=== PATIENT | male | born 1950 | race Caucasian/White ===

== ENCOUNTER → 2018-05-01 09:09 | Outpatient (CLI) | payer MEDICARE, OTHER, SELFPAY ==
[2018-05-01 17:25] LABS: Absolute Lymphocyte Count 1.56 X10^3/ul (0.83-4.51); Absolute Neutrophil Count 3.2 X10^3/uL (2.0-7.7); Basophil# 0.01 X10^3/uL; Basophil% 0.2 % (0-1); Eosinophil# 0.21 X10^3/uL; Eosinophils% 3.8 % (0-5); Hemoglobin 15.2 g/dl (13.0-16.5); Lymphocyte # 1.56 X10^3/ul (4.0); Lymphocyte % 28.1 % (19-41); Mean Corpuscular Hgb 28.6 pg (27.0-32.0); Mean Corpuscular Volume 86.6 fL (80-94); Mean Platelet Vol. 9.6 fl (6.2-12.0); Monocyte# 0.58 X10^3/uL; Monocyte% 10.5 % (0-10); Neutrophil # 3.18 X10^3/uL (2.7-7.7); Neutrophil % 57.2 % (47-70); Platelet Count 206 K/mm3 (150-450); RBC Distribution Width CV 14.4 % (11.6-14.6); RBC Distribution Width SD 46.1 fl (35.1-43.9); Red Blood Count 5.31 M/mm3 (4.6-6.2); White Blood Count 5.6 K/mm3 (4.4-11.0)
[2018-05-01 17:49] LABS: POSITIVE COUNT NO; POSITIVE DIFFERENTIAL NO; POSITIVE MORPHOLOGY NO
[2018-05-01 17:56] LABS: AST(SGOT) 20 U/L (15-37); Alanine Aminotransfer ALT/SGPT 28 U/L (16-61); Albumin, Serum 3.7 g/dL (3.2-5.0); Alkaline Phosphatase 119 U/L (45-117); Anion Gap 8 (5-15); BUN 19 mg/dL (7-18); BUN/Creat Ratio 22.8 RATIO (10-20); Calcium,Total 8.7 mg/dL (8.5-10.1); Chloride 106 mmol/L (98-107); Creatinine, Serum 0.83 mg/dL (0.70-1.30); EST Glomerular Filtration Rate 97 mL/min (>60); Est Glom Filt Rate - Afr Amer 118 mL/min (>60); Globulin 3.6 g/dL (2.2-4.2); Glucose 85 mg/dL (74-106); PSA,Total - Annual Screen 2.96 ng/mL (0.00-4.00); Potassium 4.2 mmol/L (3.5-5.1); Protein, Total 7.3 g/dL (6.4-8.2); Sodium Level 143 mmol/L (136-145); Thyroid Stim Hormone (TSH) 1.06 uIU/mL (0.358-3.74)
[2018-05-02 08:58] LABS: Vitamin D,25 Hydroxy 17.7 ng/mL (29.95-100.01)
[2018-05-04 10:17] LABS: Hep C Antibodies <0.1 s/co ratio (0.0-0.9)
== END ==
PROVIDERS: Family Provider Family Medicine Geriatric Medicine; PCP Family Medicine Geriatric Medicine; Visit Provider Family Medicine Geriatric Medicine
DX: R53.83 Other fatigue (principal); E55.9 Vitamin D deficiency, unspecified; Z13.89 Encounter for screening for other disorder; Z12.5 Encounter for screening for malignant neoplasm of prostate
CPT/HCPCS: 36415; 80053; 82306; 84153; 84403; 84443; 85025; 86803; G0103

== ENCOUNTER → 2018-10-23 13:33 | Outpatient (CLI) | payer MEDICARE, OTHER, SELFPAY | PROVIDERS: Family Provider Family Medicine Geriatric Medicine; PCP Family Medicine Geriatric Medicine; Referring Provider Family Medicine Geriatric Medicine; Visit Provider Family Medicine Geriatric Medicine | DX: R68.83 Chills (without fever) (principal) | CPT/HCPCS: 87633 ==

== ENCOUNTER → 2019-05-07 11:36 | Outpatient (CLI) | payer MEDICARE, OTHER, SELFPAY ==
[2019-05-07 12:32] LABS: Absolute Lymphocyte Count 1.36 X10^3/uL (0.83-4.51); Absolute Neutrophil Count 3.9 X10^3/uL (2.0-7.7); Basophil# 0.01 X10^3/uL; Basophil% 0.2 % (0-1); Eosinophil# 0.35 X10^3/uL; Eosinophils% 5.6 % (0-5); Hematocrit 47.8 % (40-54); Hemoglobin 15.6 g/dL (13.0-16.5); Lymphocyte # 1.36 X10^3/ul (4.0); Lymphocyte % 21.7 % (19-41); Mean Corp Hgb Conc 32.6 g/dL (32-36); Mean Corpuscular Hgb 28.6 pg (27.0-32.0); Mean Corpuscular Volume 87.7 fL (80-94); Mean Platelet Vol. 9.6 fl (6.2-12.0); Monocyte# 0.64 X10^3/uL; Monocyte% 10.2 % (0-10); NRBC Flagged by Analyzer 0 % (0-5); Neutrophil # 3.88 X10^3/uL (2.7-7.7); Neutrophil % 61.8 % (47-70); Platelet Count 204 K/mm3 (150-450); RBC Distribution Width CV 13.8 % (11.6-14.6); RBC Distribution Width SD 44.3 fl (35.1-43.9); Red Blood Count 5.45 M/mm3 (4.6-6.2); White Blood Count 6.3 K/mm3 (4.4-11.0)
[2019-05-07 12:51] LABS: ALB/GLOB Ratio 1.1 RATIO (0.9-2.4); AST(SGOT) 17 U/L (15-37); Alanine Aminotransfer ALT/SGPT 22 U/L (16-61); Albumin, Serum 3.7 g/dL (3.2-5.0); Alkaline Phosphatase 126 U/L (45-117); Anion Gap 5 (5-15); BUN 17 mg/dL (7-18); BUN/Creat Ratio 19.1 RATIO (10-20); Calcium,Total 8.8 mg/dL (8.5-10.1); Chloride 106 mmol/L (98-107); Creatinine, Serum 0.89 mg/dL (0.70-1.30); EST Glomerular Filtration Rate 90 mL/min (>60); Est Glom Filt Rate - Afr Amer 108 mL/min (>60); Globulin 3.3 g/dL (2.2-4.2); Glucose 90 mg/dL (74-106); Potassium 4.1 mmol/L (3.5-5.1); Sodium Level 142 mmol/L (136-145); Thyroid Stim Hormone (TSH) 0.98 uIU/mL (0.358-3.74)
[2019-05-07 12:54] LABS: Vitamin D,25 Hydroxy 24.3 ng/mL (29.95-100.01)
== END ==
PROVIDERS: Family Provider Family Medicine Geriatric Medicine; PCP Family Medicine Geriatric Medicine; Visit Provider Family Medicine Geriatric Medicine
DX: E55.9 Vitamin D deficiency, unspecified (principal); R53.83 Other fatigue; Z12.5 Encounter for screening for malignant neoplasm of prostate
CPT/HCPCS: 36415; 80053; 82306; 84153; 84443; 85025; G0103

== ENCOUNTER → 2019-08-17 | Outpatient (CLI) | payer MEDICARE, OTHER, SELFPAY ==
[2019-07-08 09:45] VITALS: BMI 27.6
--- NOTE | 2019-08-17 06:55 | ECHOD_ITS ---
Reason For Study: CP Procedure This was a 2D Doppler, Color Flow transthoracic echocardiogram. Contrast injection was performed. Exam performed in department. Left Ventricle Normal LV size. Left ventricular systolic function is normal. The estimated ejection fraction is 65 %. Stage 1 diastolic dysfunction. No regional wall motion abnormalities noted. Right Ventricle Normal RV size. Normal systolic function. Atria Normal left atrium. Normal right atrium. Mitral Valve Normal mitral valve. Tricuspid Valve Normal tricuspid valve. Aortic Valve Normal aortic valve. Pulmonic Valve Normal pulmonic valve. Great Vessels Normal aortic root. The pulmonary artery is normal size. Normal inferior vena cava. Pericardium/Pleural No pericardial effusion. Medication Performed a rapid injection of agitated mix of 9 cc saline and 1cc air to assess for atrial septal defect. MMode/2D Measurements & Calculations LVIDd: 3.8 cm IVSd: 1.1 cm LA dimension: 3.4 cm LVIDs: 2.2 cm LVPWd: 1.2 cm RVDd: 3.5 cm FS: 42.4 % LAV(MOD-bp): 27.3 ml LA A4 area: 10.4 cm2 RA A4 area: 10.4 cm2 LAV(MOD-bp) Indexed: 15.0 ml/m2 LAV(MOD-sp2): 34.3 ml LAV(MOD-sp4): 20.5 ml Time Measurements MV dec time: 0.17 sec Doppler Measurements & Calculations MV E max manuel: 61.9 cm/sec Lat Peak E' Manuel: 6.6 cm/sec Med Peak E' Manuel: 6.3 cm/sec MV A max manuel: 81.9 cm/sec E/E' lat: 9.4 E/E' med: 9.8 MV E/A: 0.76 MV V2 max: 84.8 cm/sec MV P1/2t max manuel: 66.6 cm/sec Ao V2 max: 80.3 cm/sec MV max P.9 mmHg MV P1/2t: 75.7 msec Ao max P.6 mmHg MV V2 mean: 48.2 cm/sec MV dec slope: 257.8 cm/sec2 MV mean P.1 mmHg MV V2 VTI: 15.7 cm MVA(P1/2t): 2.9 cm2 AI max manuel: 396.4 cm/sec LV V1 max: 68.3 cm/sec PA V2 max: 89.6 cm/sec AI max P.9 mmHg LV V1 max P.9 mmHg AI dec slope: 302.5 cm/sec2 AI P1/2t: 383.8 msec TR max manuel: 268.2 cm/sec TR max P.8 mmHg Interpretation Summary Normal LV size. Left ventricular systolic function is normal. The estimated ejection fraction is 65 %. Stage 1 diastolic dysfunction. Structurally normal valves. Ordering Physician: Balwinder Parry Referring Physician: Tj So Chi Performed By: Delano Schuster RCS
--- NOTE | 2019-08-17 14:14 | STRESSREP ---
Stress Test Report Exercise myocardial perfusion stress test. 69-year-old man with a history of shortness of breath and cardiac risk factors. Stress protocol: Resting EKG demonstrates normal sinus rhythm with a rate of 83 bpm normal intervals are noted resting blood pressures 118/76. The patient exercised according to regular Kaleb protocol for 7 minutes the maximum heart rate attained was 173 bpm which was 115% of maximum predicted heart rate the maximum workload was 8.5 metabolic equivalents. At rest there were no ST or T wave changes no suggest ischemia peak exercise upsloping ST changes were noted with no meet the criteria for ischemia occasional premature ventricular complex was noted. The resting blood pressures 118/76 with a peak blood pressure 162/80 mmHg rate pressure product was 25,500. Myocardial perfusion protocol. 10.8 mCi of technetium 99m sestamibi was injected at rest. The patient exercised according to regular Kaleb protocol for total duration of 7 minutes at peak exercise 35.0 mCi of technetium 99m sestamibi was injected stress images were obtained stress and rest images were reconstructed and compared in the short axis vertical and horizontal long axis. Gated images were also obtained Perfusion SPECT analysis: Review of the stress images demonstrate normal uptake of tracer noted in all areas of myocardium the resting images similar demonstrate normal uptake of tracer noted in all areas of myocardium no areas of reversibility or no suggest ischemia no previous infarct is noted. Gated SPECT analysis: The gated ejection fraction is noted to be 75% Conclusion: Normal exercise myocardial perfusion stress test at a moderate workload. Preserved ejection fraction.
== END | disposition home or self-care (01) ==
LOC: CVS 06:54
PROVIDERS: Family Provider Family Medicine Geriatric Medicine; PCP Family Medicine Geriatric Medicine; Referring Provider Internal Medicine Cardiovascular Disease; Visit Provider Internal Medicine Cardiovascular Disease
DX: E78.00 Pure hypercholesterolemia, unspecified (principal); R06.09 Other forms of dyspnea; R07.9 Chest pain, unspecified; Z82.49 Family history of ischemic heart disease and other diseases of the circulatory system
CPT/HCPCS: 78452; 93017; 93306; A9500; A4216

== ENCOUNTER → 2020-06-22 11:12 | Outpatient (CLI) | payer MEDICARE, OTHER, SELFPAY ==
[2019-07-08 09:45] VITALS: BMI 27.6
--- NOTE | 2020-06-22 11:20 | RAD_ITS ---
STUDY: X-RAY - ABDOMEN/PELVIS REASON FOR EXAM: Male, 70 years old. FECAL IMPACTION TECHNIQUE: 4 views COMPARISON: None. FINDINGS: Normal visualized lung bases. There is an unremarkable bowel gas pattern. No significant fecal retention. There is no demonstrated free abdominal air. The visualized liver, spleen and kidneys are grossly normal in size and morphology. Normal soft tissue structures. Degenerative vertebral changes and mild scoliosis. RAD/Abd Inc Decub and/or Erect IMPRESSION: Normal x-ray examination of the abdomen and pelvis. Electronically Signed: Braden Murrieta DO at 17:31 EDT Tel [phone], Service support ,
[2020-06-22 16:08] LABS: Absolute Lymphocyte Count 1.97 X10^3/uL (0.83-4.51); Absolute Neutrophil Count 3.3 X10^3/uL (2.0-7.7); Basophil# 0.03 X10^3/uL; Basophil% 0.5 % (0-1); Eosinophil# 0.47 X10^3/uL; Eosinophils% 7.2 % (0-5); Hematocrit 47.7 % (40-54); Hemoglobin 15.1 g/dL (13.0-16.5); Lymphocyte # 1.97 X10^3/ul (4.0); Lymphocyte % 30.1 % (19-41); Mean Corp Hgb Conc 31.7 g/dL (32-36); Mean Corpuscular Hgb 27.7 pg (27.0-32.0); Mean Corpuscular Volume 87.5 fL (80-94); Mean Platelet Vol. 9.4 fl (6.2-12.0); Monocyte# 0.79 X10^3/uL; Monocyte% 12.1 % (0-10); NRBC Flagged by Analyzer 0 % (0-5); Neutrophil # 3.26 X10^3/uL (2.7-7.7); Neutrophil % 49.8 % (47-70); Platelet Count 229 K/mm3 (150-450); RBC Distribution Width CV 14.1 % (11.6-14.6); Red Blood Count 5.45 M/mm3 (4.6-6.2); White Blood Count 6.5 K/mm3 (4.4-11.0)
[2020-06-22 16:38] LABS: AST(SGOT) 21 U/L (15-37); Alanine Aminotransfer ALT/SGPT 25 U/L (16-61); Albumin, Serum 3.7 g/dL (3.2-5.0); Alkaline Phosphatase 123 U/L (45-117); Anion Gap 3 (5-15); BUN 17 mg/dL (7-18); Calcium,Total 8.6 mg/dL (8.5-10.1); Chloride 104 mmol/L (98-107); Creatinine, Serum 0.94 mg/dL (0.70-1.30); EST Glomerular Filtration Rate 84 mL/min (>60); Est Glom Filt Rate - Afr Amer 101 mL/min (>60); Globulin 3.7 g/dL (2.2-4.2); Glucose 86 mg/dL (74-106); Potassium 4.7 mmol/L (3.5-5.1); Protein, Total 7.4 g/dL (6.4-8.2); Sodium Level 138 mmol/L (136-145); Thyroid Stim Hormone (TSH) 0.97 uIU/mL (0.358-3.74)
[2020-06-22 16:54] LABS: Vitamin D,25 Hydroxy 34.3 ng/mL
== END ==
PROVIDERS: PCP Family Medicine Geriatric Medicine; Referring Provider Family Medicine Geriatric Medicine; Visit Provider Family Medicine Geriatric Medicine
DX: K56.41 Fecal impaction (principal); E55.9 Vitamin D deficiency, unspecified; F52.8 Other sexual dysfunction not due to a substance or known physiological condition; R53.83 Other fatigue
CPT/HCPCS: 36415; 74019; 80053; 82306; 84403; 84443; 85025

== ENCOUNTER → 2020-09-30 10:52 | Outpatient (CLI) | payer MEDICARE, OTHER, SELFPAY ==
[2019-07-08 09:45] VITALS: BMI 27.6
--- NOTE | 2020-09-30 11:00 | RAD_ITS ---
STUDY: X-RAY - LUMBAR SPINE REASON FOR EXAM: Male, 70 years old. LOW BACK PAIN WITH RADICULOPATHY TO LEFT LEG S/P TWISTING INJURY x2 DAYS AGO TECHNIQUE: 2 view(s) of the lumbar spine were obtained. COMPARISON: None FINDINGS: Normal lumbar lordosis. There is no substantial scoliosis. There is a normal alignment of the vertebrae. There is multilevel endplate spondylosis of the lumbar vertebrae. Normal disc space heights. The soft tissue structures are unremarkable. RAD/Lumbar Spine 2 or 3 Views IMPRESSION: Mild diffuse degenerative disc disease. MRI may be useful. Electronically Signed: Tray Baires MD at 8:57 EST Tel , Service support ,
== END ==
PROVIDERS: PCP Family Medicine Geriatric Medicine; Referring Provider Family Medicine Geriatric Medicine; Visit Provider Family Medicine Geriatric Medicine
DX: M54.5 Low back pain (principal)
CPT/HCPCS: 72100

== ENCOUNTER → 2020-11-17 16:21 | Outpatient (CLI) | payer MEDICARE, OTHER, SELFPAY ==
[2020-11-15 08:52] VITALS: BMI 27.9
--- NOTE | 2020-11-17 16:26 | US_ITS ---
STUDY: SUPERFICIAL ULTRASOUND - BILATERAL AXILLA REASON FOR EXAM: Male, 70 years old. BILATERAL AXILLA SWELLING -- LYMPHADENOPATHY TECHNIQUE: A superficial ultrasound was performed with real-time and static lópez-scale imaging. COMPARISON: None. FINDINGS: In the left axilla there is a 1.1 x 0.5 x 0.5 cm ovoid solid density heterogeneous increased DOPPLER flow and disturbance of the surrounding tissues. Contains DOPPLER flow and likely to be an inflamed lymph node. In the right axilla there is a 1.9 x 1.7 x 0.8 cm ovoid heterogeneous density with surrounding tissue disturbance and DOPPLER flow consistent with inflamed lymph node. US/Ext Non Vasc Limited/Soft Tiss IMPRESSION: Bilateral inflammatory lymph nodes as described above. Electronically Signed: Kim Carreon MD at 17:17 EST , Service support , All findings coated in the bilateral upper extremity ultrasound of the same day. Electronically Signed: Kim Carreon MD at 17:18 EST , Service support ,
== END ==
PROVIDERS: PCP Family Medicine Geriatric Medicine; Referring Provider Family Medicine Geriatric Medicine; Visit Provider Family Medicine Geriatric Medicine
DX: R59.9 Enlarged lymph nodes, unspecified (principal)
CPT/HCPCS: 76882

== ENCOUNTER → 2020-12-09 12:45 | Outpatient (CLI) | payer MEDICARE, OTHER, SELFPAY ==
[2020-11-29 12:59] VITALS: BMI 26.9
--- NOTE | 2020-12-09 12:47 | CT_ITS ---
STUDY: CT ABDOMEN AND PELVIS WITH CONTRAST REASON FOR EXAM: Male, 70 years old. BILAT AXILLARY LYMPHADENOPATHY, STRONG FAMILY HISTORY OF NHL (MOM,DAD,BROTHER) RADIATION DOSAGE (If Supplied By Facility): CTDIvol = ( 15.89 ) mGy, DLP = ( 843.48 ) mGycm TECHNIQUE: Transaxial images were obtained from the dome of the diaphragm to the symphysis pubis without oral contrast. IV 100mL Isovue-300 was administered. Sagittal and coronal images were reconstructed. Individualized dose optimization techniques were used for this CT. COMPARISON: None. FINDINGS: Mild increased markings at the lung bases suggestive of either mild linear scarring versus atelectasis. The visualized portions of the heart are within normal limits. Normal liver. Normal gallbladder and extrahepatic biliary system. Normal spleen. Normal pancreas. Normal bilateral adrenal glands. There is a 5.9 cm x 3.3 cm cyst arising from the upper medial aspect of the left kidney. Normal left kidney. Normal visualized stomach. Normal small intestine. There are scattered colonic diverticula consistent with diverticulosis. The appendix is visualized and appears normal. There is scattered atherosclerotic calcification of the abdominal aorta, without a demonstrated aneurysm. Normal inferior vena cava. Normal retroperitoneum. Normal urinary bladder. Small bilateral inguinal hernias containing fat. There are mild degenerative changes of the visualized lumbar spine. CT/Abdomen/Pelvis WITH Contrast IMPRESSION: Right renal cyst. Scattered sigmoid diverticula. Mild linear scarring and/or atelectasis at the lung bases. Electronically Signed: Kunal Lopez MD at 13:48 EST , Service support ,
--- NOTE | 2020-12-09 12:47 | CT_ITS ---
STUDY: CT CHEST WITH CONTRAST REASON FOR EXAM: Male, 70 years old. BILAT AXILLARY LYMPHADENOPATHY, STRONG FAMILY H/O NHL (MOM,DAD,BROTHER) RADIATION DOSAGE (If Supplied By Facility): CTDIvol = ( 11.22 ) mGy, DLP = ( 344.74 ) mGycm TECHNIQUE: Transaxial imaging was performed following intravenous administration of IV 100mL Isovue-300. Multiplanar coronal and sagittal images were reformatted. Individualized dose optimization techniques were used for this CT. COMPARISON: None. FINDINGS: Small benign-appearing bilateral axillary lymph nodes. Mild increased linear markings at the lung bases as well as in the lingular segment of the left upper lobe suggestive of scarring. There is no demonstrated pleural abnormality. Normal heart and pericardium. Normal mediastinum. Normal hilar regions. Normal enhanced pulmonary arteries. Normal aorta arch and descending thoracic aorta. There are degenerative changes of the thoracic spine. There is no demonstrated abnormality of the visualized upper abdomen. CT/Chest WITH Contrast IMPRESSION: Normal enhanced CT Chest examination. Small benign-appearing bilateral axillary lymph nodes. Electronically Signed: Kunal Lopez MD at 13:57 EST , Service support ,
[2020-12-09 13:00] LABS: CREATININE FINGERSTICK 0.8 mg/dL (0.70-1.30); EGFR FINGERSTICK > 60.0000 mL/min (>60)
== END ==
PROVIDERS: PCP Family Medicine Geriatric Medicine; Referring Provider Surgery; Visit Provider Surgery
DX: R59.1 Generalized enlarged lymph nodes (principal); R59.0 Localized enlarged lymph nodes
CPT/HCPCS: 71260; 74177; Q9967

== ENCOUNTER → 2021-02-01 08:57 | Outpatient (CLI) | payer MEDICARE, OTHER, SELFPAY ==
[2020-12-13 15:11] VITALS: BMI 29.3
--- NOTE | 2021-02-01 09:00 | US_ITS ---
STUDY: SUPERFICIAL ULTRASOUND - RIGHT AXILLARY REGION. REASON FOR EXAM: Male, 70 years old. FOLLOW UP ENLARGED LYMPH NODES -- LEFT AXILLAE TECHNIQUE: A superficial ultrasound was performed with real-time and static lópez-scale imaging. COMPARISON: Comparison is made with prior examination dated 11/17/2020. In the right axilla, there is a 1.6 cm x 1.4 cm x 0.7 cm ovoid heterogeneous density with surrounding mild flow consistent with a lymph node. This is essentially unchanged. FINDINGS: Stable examination IMPRESSION: Stable examination. Electronically Signed: Kunal Lopez MD at 13:29 EDT , Service support , STUDY: SUPERFICIAL ULTRASOUND - LEFT AXILLA. REASON FOR EXAM: Male, 70 years old. FOLLOW UP ENLARGED LYMPH NODES -- LEFT AXILLAE TECHNIQUE: A superficial ultrasound was performed with real-time and static lópez-scale imaging. COMPARISON: Comparison is made with prior examination dated 11/17/2020. FINDINGS: 3 lymph nodes are seen in the left axillary region. The largest measures 2.7 cm x 1.2 cm x 1 cm. This has increased in size as compared to prior study. A second lymph node measuring 1.1 cm x 0.8 cm x 0.5 cm is seen as well. There is also evidence of a third lymph node measuring 1.3 cm x 1.4 cm x 0.9 cm. US/Ext Non Vasc Limited/Soft Tiss IMPRESSION: Enlargement of the left axillary lymph nodes as described. It presently measures 2.7 cm x 1.2 cm by 1 cm. Electronically Signed: Kunal Lopez MD at 13:31 EDT , Service support ,
== END ==
PROVIDERS: PCP Family Medicine Geriatric Medicine; Referring Provider Internal Medicine Hematology & Oncology; Visit Provider Internal Medicine Hematology & Oncology
DX: R59.0 Localized enlarged lymph nodes (principal)
CPT/HCPCS: 36415; 76882; 80053; 83615; 85025

== ENCOUNTER → 2021-05-01 12:16 | Outpatient (CLI) | payer MEDICARE, OTHER, SELFPAY ==
[2021-02-07 15:30] VITALS: BMI 29.2
--- NOTE | 2021-05-01 12:17 | US_ITS ---
STUDY: SUPERFICIAL ULTRASOUND - RIGHT AXILLA REASON FOR EXAM: Male, 70 years old. F/U ENLARGED LYMPH NODES -- BILATERAL AXILLAE TECHNIQUE: A superficial ultrasound was performed with real-time and static lópez-scale imaging. COMPARISON: None. FINDINGS: Multiple longitudinal and transverse ultrasound images the right axilla fails demonstrate a discrete solid or cystic mass or lymphadenopathy. IMPRESSION: Normal right axilla. Electronically Signed: Tray Baires MD at 9:35 EDT Tel , Service support , STUDY: SUPERFICIAL ULTRASOUND - LEFT AXILLA REASON FOR EXAM: Male, 70 years old. F/U ENLARGED LYMPH NODES -- BILATERAL AXILLAE TECHNIQUE: A superficial ultrasound was performed with real-time and static lópez-scale imaging. COMPARISON: None. FINDINGS: Multiple longitudinal and transverse ultrasound images the left axilla confirm a 1.0 x 1.9 cm oval hypoechoic mass with a large central hyperechoic area consistent with a prominent lymph node. Another of the 0.6 x 1.0 cm left axillary lymph node is noted. US/Ext Non Vasc Limited/Soft Tiss IMPRESSION: Normal left axilla with some prominent left axillary lymph nodes with normal fatty armaan. Electronically Signed: Tray Baires MD at 9:36 EDT Tel , Service support ,
== END ==
PROVIDERS: PCP Family Medicine Geriatric Medicine; Referring Provider Internal Medicine Hematology & Oncology; Visit Provider Internal Medicine Hematology & Oncology
DX: R59.0 Localized enlarged lymph nodes (principal)
CPT/HCPCS: 76882

== ENCOUNTER → 2021-06-09 11:22 | Outpatient (CLI) | payer MEDICARE, OTHER, SELFPAY ==
--- NOTE | 2021-06-09 11:35 | RAD_ITS ---
STUDY: X-RAY - LEFT FOOT CLINICAL: Male, 70 years old. Left foot pain. TECHNIQUE: 3 view(s) of the foot. COMPARISON: None. FINDINGS: Osteopenia. Small inferior calcaneal spur. Normal visualized subtalar, talonavicular, calcaneocuboid, tarsal and tarsometatarsal articulations. Normal metatarsi. Mild arthrosis of the MTP and IP joints. The soft tissue structures are unremarkable. RAD/Foot min 3 Views IMPRESSION: Osteopenia with osteoarthritic changes. No acute finding Electronically Signed: Bennie Browning MD at 13:49 EDT , Service support ,
== END ==
PROVIDERS: PCP Family Medicine Geriatric Medicine; Referring Provider Family Medicine Geriatric Medicine; Visit Provider Family Medicine Geriatric Medicine
DX: M79.672 Pain in left foot (principal)
CPT/HCPCS: 73630

== ENCOUNTER → 2021-06-29 09:29 | Outpatient (CLI) | payer MEDICARE, OTHER, SELFPAY ==
[2021-06-29 10:15] LABS: Absolute Lymphocyte Count 1.56 X10^3/uL (0.83-4.51); Absolute Neutrophil Count 3.2 X10^3/uL (2.0-7.7); Basophil# 0.03 X10^3/uL; Basophil% 0.5 % (0-1); Eosinophil# 0.41 X10^3/uL; Hematocrit 47.7 % (40-54); Hemoglobin 15.5 g/dL (13.0-16.5); Lymphocyte # 1.56 X10^3/ul (0.83-4.51); Lymphocyte % 26.5 % (19-41); Mean Corp Hgb Conc 32.5 g/dL (32-36); Mean Corpuscular Hgb 28.4 pg (27.0-32.0); Mean Corpuscular Volume 87.4 fL (80-94); Mean Platelet Vol. 8.7 fl (6.2-12.0); Monocyte# 0.67 X10^3/uL; Monocyte% 11.4 % (0-10); NRBC Flagged by Analyzer 0 % (0-5); Neutrophil # 3.19 X10^3/uL (2.7-7.7); Neutrophil % 54.3 % (47-70); Platelet Count 205 K/mm3 (150-450); RBC Distribution Width SD 44.7 fl (35.1-43.9); Red Blood Count 5.46 M/mm3 (4.6-6.2); White Blood Count 5.9 K/mm3 (4.4-11.0)
[2021-06-29 10:48] LABS: ALB/GLOB Ratio 0.9 RATIO (0.9-2.4); AST(SGOT) 14 U/L (15-37); Alanine Aminotransfer ALT/SGPT 28 U/L (16-61); Albumin, Serum 3.4 g/dL (3.2-5.0); Alkaline Phosphatase 126 U/L (45-117); Anion Gap 5 (5-15); BUN 14 mg/dL (7-18); BUN/Creat Ratio 16.5 RATIO (10-20); Calcium,Total 8.9 mg/dL (8.5-10.1); Chloride 105 mmol/L (98-107); Creatinine, Serum 0.85 mg/dL (0.70-1.30); EST Glomerular Filtration Rate 95 mL/min (>60); Est Glom Filt Rate - Afr Amer 115 mL/min (>60); Globulin 3.8 g/dL (2.2-4.2); Glucose 97 mg/dL (74-106); Potassium 4.2 mmol/L (3.5-5.1); Protein, Total 7.2 g/dL (6.4-8.2); Sodium Level 139 mmol/L (136-145); Thyroid Stim Hormone (TSH) 1.89 uIU/mL (0.358-3.74)
[2021-06-29 10:59] LABS: Vitamin D,25 Hydroxy 24.1 ng/mL
== END ==
PROVIDERS: PCP Family Medicine Geriatric Medicine; Referring Provider Family Medicine Geriatric Medicine; Visit Provider Family Medicine Geriatric Medicine
DX: E55.9 Vitamin D deficiency, unspecified (principal); R53.83 Other fatigue
CPT/HCPCS: 36415; 80053; 82306; 84443; 85025

== ENCOUNTER → 2021-07-03 13:00 | Outpatient (CLI) | payer MEDICARE, OTHER, SELFPAY | PROVIDERS: PCP Family Medicine Geriatric Medicine; Referring Provider Family Medicine Geriatric Medicine; Visit Provider Family Medicine Geriatric Medicine | DX: U07.1 COVID-19 (principal) | CPT/HCPCS: 87635; C9803; U0005; U0003 ==

== ENCOUNTER 2021-07-04 15:55 | Outpatient (CLI) | payer MEDICARE, OTHER, SELFPAY ==
[2021-07-04] MEDS: 0.9% Saline Lock 10 ML Syringe IV (16:18)
[2021-07-04 16:19] VITALS: BP 127/71; PULSE 100; RESP 16; TEMP 36.7; O2SAT 97; BMI 26.6
[2021-07-04 16:55] VITALS: BP 125/75; PULSE 106; RESP 16; TEMP 36.8; O2SAT 98
[2021-07-04 17:55] VITALS: BP 133/73; PULSE 98; RESP 16; TEMP 36.7; O2SAT 98
== END 2021-07-04 17:55 | disposition home or self-care (01) ==
LOC: ICUOUT 15:55 → MS2 15:56
PROVIDERS: PCP Family Medicine Geriatric Medicine; Referring Provider Nurse Practitioner Adult Health; Visit Provider Nurse Practitioner Adult Health
DX: Z23 Encounter for immunization (principal); U07.1 COVID-19
CPT/HCPCS: J7050; M0243; A4216; Q0244

== ENCOUNTER → 2021-10-03 10:26 | Outpatient (CLI) | payer MEDICARE, OTHER, SELFPAY | PROVIDERS: PCP Family Medicine Geriatric Medicine; Referring Provider Family Medicine Geriatric Medicine; Visit Provider Family Medicine Geriatric Medicine | DX: R68.83 Chills (without fever) (principal) | CPT/HCPCS: 87635; 87804; 87807; C9803; U0005; U0003 ==

== ENCOUNTER 2021-10-30 09:59 | Outpatient (CLI) | payer MEDICARE, OTHER, SELFPAY ==
[2021-05-09 14:04] VITALS: BMI 28.6
--- NOTE | 2021-10-30 10:03 | US_ITS ---
STUDY: SUPERFICIAL ULTRASOUND - RIGHT AXILLA. REASON FOR EXAM: Male, 71 years old. F/U LYMPHADENOPATHY -- RIGHT and amp; LEFT AXILLA TECHNIQUE: A superficial ultrasound was performed with real-time and static lópez-scale imaging. COMPARISON: Comparison is made with prior study dated 05/01/2021. FINDINGS: There is a 9 mm x 8 mm x 5 mm hypoechoic nodule with central hyperechoic hilum suggestive of a lymph node. IMPRESSION: 9 mm x 8 mm x 5 mm hypoechoic nodule with central hyperechoic hilum suggestive of a lymph node. Electronically Signed: Kunal Lopez MD at 11:21 EST , Service support , STUDY: SUPERFICIAL ULTRASOUND - LEFT AXILLA REASON FOR EXAM: Male, 71 years old. F/U LYMPHADENOPATHY -- RIGHT and amp; LEFT AXILLA TECHNIQUE: A superficial ultrasound was performed with real-time and static lópez-scale imaging. COMPARISON: Comparison is made with prior study 05/01/2021. FINDINGS: There is a 9 mm x 7 mm x 8 mm left axillary lymph node. US/Ext Non Vasc Limited/Soft Tiss IMPRESSION: 9 mm x 7 mm x 8 mm left axillary lymph node. Electronically Signed: Kunal Lopez MD at 11:22 EST , Service support ,
== END 2021-10-30 23:59 | disposition short-term general hospital (02) ==
LOC: US 10:01
PROVIDERS: PCP Family Medicine Geriatric Medicine; Referring Provider Internal Medicine Hematology & Oncology; Visit Provider Internal Medicine Hematology & Oncology
DX: R59.0 Localized enlarged lymph nodes (principal)
CPT/HCPCS: 76882

== ENCOUNTER → 2022-04-02 | Outpatient (CLI) | payer MEDICARE, OTHER, SELFPAY | END | disposition home or self-care (01) | LOC: PSN 14:06 | PROVIDERS: PCP Family Medicine Geriatric Medicine; Referring Provider Family Medicine Geriatric Medicine; Visit Provider Family Medicine Geriatric Medicine | DX: R68.83 Chills (without fever) (principal); Z20.822 Contact with and (suspected) exposure to COVID-19 | CPT/HCPCS: 87635; 87804; 87807; C9803; U0003; U0005 ==

== ENCOUNTER → 2022-07-03 | Outpatient (CLI) | payer MEDICARE, OTHER, SELFPAY ==
[2022-07-03 12:03] LABS: Absolute Lymphocyte Count 1.87 X10^3/uL (0.83-4.51); Absolute Neutrophil Count 4.2 X10^3/uL (2.0-7.7); Basophil# 0.03 X10^3/uL; Basophil% 0.4 % (0-1); Eosinophil# 0.37 X10^3/uL; Eosinophils% 5.1 % (0-5); Hematocrit 46.8 % (40-54); Hemoglobin 15.2 g/dL (13.0-16.5); Lymphocyte # 1.87 X10^3/ul (0.83-4.51); Lymphocyte % 25.7 % (19-41); Mean Corp Hgb Conc 32.5 g/dL (32-36); Mean Corpuscular Hgb 28.5 pg (27.0-32.0); Mean Corpuscular Volume 87.6 fL (80-94); Mean Platelet Vol. 9.5 fl (6.2-12.0); Monocyte# 0.76 X10^3/uL; Monocyte% 10.4 % (0-10); NRBC Flagged by Analyzer 0 % (0-5); Neutrophil # 4.22 X10^3/uL (2.7-7.7); Platelet Count 230 K/mm3 (150-450); RBC Distribution Width CV 14.6 % (11.6-14.6); RBC Distribution Width SD 47.3 fl (35.1-43.9); Red Blood Count 5.34 M/mm3 (4.6-6.2); White Blood Count 7.3 K/mm3 (4.4-11.0)
[2022-07-03 12:26] LABS: AST(SGOT) 13 U/L (15-37); Alanine Aminotransfer ALT/SGPT 21 U/L (16-61); Albumin, Serum 3.5 g/dL (3.2-5.0); Alkaline Phosphatase 130 U/L (45-117); Anion Gap 6 (5-15); BUN 15 mg/dL (7-18); BUN/Creat Ratio 17.3 RATIO (10-20); Calcium,Total 9.1 mg/dL (8.5-10.1); Chloride 105 mmol/L (98-107); Creatinine, Serum 0.87 mg/dL (0.70-1.30); EST Glomerular Filtration Rate 92 mL/min (>60); Est Glom Filt Rate - Afr Amer 111 mL/min (>60); Globulin 3.6 g/dL (2.2-4.2); Glucose 99 mg/dL (74-106); Potassium 4.1 mmol/L (3.5-5.1); Protein, Total 7.1 g/dL (6.4-8.2); Sodium Level 141 mmol/L (136-145); Thyroid Stim Hormone (TSH) 1.83 uIU/mL (0.358-3.74)
== END | disposition home or self-care (01) ==
LOC: POLAB3 09:29
PROVIDERS: PCP Family Medicine Geriatric Medicine; Visit Provider Family Medicine Geriatric Medicine
DX: E55.9 Vitamin D deficiency, unspecified (principal); F52.8 Other sexual dysfunction not due to a substance or known physiological condition; R53.83 Other fatigue
CPT/HCPCS: 36415; 80053; 82306; 84403; 84443; 85025

== ENCOUNTER → 2022-09-19 | Outpatient (CLI) | payer MEDICARE, OTHER, SELFPAY | END | disposition home or self-care (01) | PROVIDERS: PCP Family Medicine Geriatric Medicine; Visit Provider Family Medicine Geriatric Medicine | DX: R68.83 Chills (without fever) (principal); Z20.822 Contact with and (suspected) exposure to COVID-19 | CPT/HCPCS: 87635; 87804; 87807; C9803; U0003; U0005 ==

== ENCOUNTER 2022-11-07 10:00 | Outpatient (RCR) | payer MEDICARE, OTHER, SELFPAY ==
--- NOTE | 2022-09-03 11:07 | HP.PTEVAL_ITS ---
Patient's Visit Information DIONI WEST is a 72 year old M referred to Physical Therapy by YVES SKY with a diagnosis of post-traumatic OA and meniscal tear complex... menisectomy. Date of Evaluation: 09/03/22 Physical Therapist: ROSAURA Hassan - Visit Plan Frequency: 3x /Week Duration: 6 Weeks Plan: 3X/ week for 6 weeks for L knee AROM (especially extension), stairs and functional activities, gait training, SLB activities, proprioception activities, strengthening with HEP and modalities if needed. HEP: heel slides, QS, ankle pumps, SLR, S/L hip abd - Subjective Pt reports that he jumped off the back of a [employer] truck and scoped and cut out medial meniscus and one of the other meniscuses. There is a question if the ACL is doing its job. It was replaced 31 years ago but on MRI it is frayed. Dr thinks that it is stable enough with strength training. Pt wants to be ready for Ski season. He will get a brace for ski season and has his follow up next week with . He still has some pain with steps, twisting on it. Most of the pain has gone away and he is not on pain meds. His L ankle is swelling that just starting today. He has been on his feet more. He does not feel pain in his calf and not red, hot or tender to the touch per his subjective. His DOS 08-29-2022. said no restricitions. - Pain L knee Pain Intensity (Out of 10): 0 - Objective Gait: Walks with decrease stride and decrease stance time on the L LE. He is able to walk on heels and toes but slight increase pain and weakness present on the L. SLB R 30 seconds and L 10 seconds. L knee girth measurements: R hip flex 6.9# and L 9.2#. R knee ext 15.9# and L knee ext 12.8#. R knee flex 9.3# and L knee flex 7.2#. R knee ext -1 degree and 142 degrees knee flexion. L knee ext -4 degrees and 120 degrees knee flexion. R girth measurements: Tib Tub 31.8, inf pat 35.4, Supra pat 38.7. L girth measurements: Tib Tub 32.5, 36.9, 39.6. Pt is able to SLR with slight extensor lag. Pt is able to QS but feels the strain behind the knee on the L. Stairs: up and down recip with 2 hand rails with increase weakness ascending steps and heistancy and weakness descending stairs - Balance/Special Test Scores Lower Extremity Functional Score: 42 - Goals Goal 1:: I HEP Goal Time Frame: 8-12 Weeks Goal 2:: Increase strength on the L to be able to go up and down stairs recip with no hand rails with no signs of weakness Goal Time Frame: 8-12 Weeks Goal 3:: Be able to walk with no antalgic gait and good heel to toe gait pattern Goal Time Frame: 8-12 Weeks Goal 4:: Be able to return to skiing with no pain and not stability issues Goal Time Frame: 8-12 Weeks Goal 5:: Be able to do SLB activities for 2 minutes without fatigue or LOB Goal Time Frame: 8-12 Weeks - Rehabilitation Potential Rehabilitation Potential: Good - Anticipated Interventions Patient/Client Instruction: Educate patient on: Condition, Plan of Care For the Purpose of:: To decrease pain, To decrease swelling/inflammation, To increase ROM, To improve nutrient delivery to tissue, To improve muscle performance and motor function, To improve ability to perform ADL's, To increase tolerance to activity/condition/position, To improve performance and independence with ADL's, To decrease level of supervision to perform tasks, To improve ability of physical actions for home/community/work/leisure, To improve gait and locomotor functions, To improve health of tissue, To decrease soft tissue restriction, To increase flexibility/ROM, To improve endurance, To improve balance, To improve safety with gait, To assume or resume ADL's Therapeutic Exercise to Include: Strength training, Endurance training, Balance training, Coordination, Agility training, Body mechanics, Postural training, Flexibilty training, Gait and locomotor training, Neuromotor development, Passive ROM, Active ROM For the Purpose of:: To decrease pain, To decrease swelling/inflammation, To increase ROM, To improve nutrient delivery to tissue, To increase oxygenation perfusion, To improve muscle performance and motor function, To improve ability to perform ADL's, To increase tolerance to activity/condition/position, To improve performance and independence with ADL's, To decrease level of supervision to perform tasks, To improve ability of physical actions for home/community/work/leisure, To improve gait and locomotor functions, To improve health of tissue, To decrease soft tissue restriction, To increase flexibility/ROM, To improve endurance, To improve balance Functional Training to Include: Gait training For the Purpose of:: To improve gait and locomotor functions Manual Therapy Techniques to Include: Passive ROM For the Purpose of:: To increase ROM IF ES: Yes Cryotherapy (ice pack, ice massage): Yes Thermo therapy (hot pack): Yes Ultrasound (thermal/non thermal): Yes For the Purpose of:: To decrease pain, To decrease swelling/inflammation, To increase ROM, To improve nutrient delivery to tissue, To improve muscle performance and motor function Thank you for the opportunity to evaluate your patient. For Medicare and Medicare HMO plans, please review the plan of care and approve it. It will need to be FAXED BACK to us at [phone] for Medicare purposes. For Medicare only, by signing this I certify the plan of care. Please let me know if there are questions or concerns regarding this plan of care. Physician Signature: ___Date:
--- NOTE | 2022-09-28 10:24 | HP.PTREVAL ---
YVES SKY, It has been my pleasure to treat DIONI WEST over the last 10 visits for Left post-traumatic OA and meniscal tear complex... menisectomy. Please see the progress note below for an update on the physical therapy plan of care! Subjective: Pt woke up with a little tweak in his knee on Saturday. His knee started to bother him at noon on Saturday and has not gotten any better. He is back to limping. The only thing that he can think of is that he went back to driving his standard transmission. His knee is 2-3/10 with walking on it. No pain in sitting. It is swollen again. He has no pain in his calf and not red hot to the touch. Pt admits to doing more cause he was feeling so much better. Objective/Function: Gait: walking with decreases stride length and no heel to toe. L knee ext was able to get to -3 degrees by end of treatment. Instructed pt to walk with a 1 crutch in R hand until able to walk better. Pt was stiff at first on the Nu-step but after moving 2 reps on the Nu-step he started to loosen up. Pt struggles with QS due to pain and hard to straighten his L knee. Pt felt that when he changed his knee direction meaning flex/ext it is super tight and painful but then does loosen up the more he goes. Neg Jesus sign and no red/hot to the touch on the L calf or knee. Pt walked out much improved weight bearing. Plan Plan: Pt to go home and do simple stationary bike, heel slides, QS and ice. 3X/ week for 6 weeks for L knee AROM (especially extension), stairs and functional activities, gait training, SLB activities, proprioception activities, strengthening with HEP and modalities if needed Balance/Gait/Functional tests - Balance/Special Test Scores Lower Extremity Functional Score: 32 Goals Goal 1:: I HEP Goal Time Frame: 8-12 Weeks Goal Progress: Goal Met Goal 2:: Increase strength on the L to be able to go up and down stairs recip with no hand rails with no signs of weakness Goal Time Frame: 8-12 Weeks Goal 3:: Be able to walk with no antalgic gait and good heel to toe gait pattern Goal Time Frame: 8-12 Weeks Goal 4:: Be able to return to skiing with no pain and not stability issues Goal Time Frame: 8-12 Weeks Goal 5:: Be able to do SLB activities for 2 minutes without fatigue or LOB Goal Time Frame: 8-12 Weeks Anticipated Interventions Patient/Client Instruction: Educate patient on: Condition, Plan of Care For the Purpose of:: To decrease pain, To decrease swelling/inflammation, To increase ROM, To improve nutrient delivery to tissue, To improve muscle performance and motor function, To improve ability to perform ADL's, To increase tolerance to activity/condition/position, To improve performance and independence with ADL's, To decrease level of supervision to perform tasks, To improve ability of physical actions for home/community/work/leisure, To improve gait and locomotor functions, To improve health of tissue, To decrease soft tissue restriction, To increase flexibility/ROM, To improve endurance, To improve balance, To improve safety with gait, To assume or resume ADL's Therapeutic Exercise to Include: Strength training, Endurance training, Balance training, Coordination, Agility training, Body mechanics, Postural training, Flexibilty training, Gait and locomotor training, Neuromotor development, Passive ROM, Active ROM For the Purpose of:: To decrease pain, To decrease swelling/inflammation, To increase ROM, To improve nutrient delivery to tissue, To increase oxygenation perfusion, To improve muscle performance and motor function, To improve ability to perform ADL's, To increase tolerance to activity/condition/position, To improve performance and independence with ADL's, To decrease level of supervision to perform tasks, To improve ability of physical actions for home/community/work/leisure, To improve gait and locomotor functions, To improve health of tissue, To decrease soft tissue restriction, To increase flexibility/ROM, To improve endurance, To improve balance Functional Training to Include: Gait training For the Purpose of:: To improve gait and locomotor functions Manual Therapy Techniques to Include: Passive ROM For the Purpose of:: To increase ROM IF ES: Yes Cryotherapy (ice pack, ice massage): Yes Thermo therapy (hot pack): Yes Ultrasound (thermal/non thermal): Yes For the Purpose of:: To decrease pain, To decrease swelling/inflammation, To increase ROM, To improve nutrient delivery to tissue, To improve muscle performance and motor function Please do not hesitate to contact me at [phone] by phone or if you have questions or concerns regarding this new plan of care! Sincerely, Chely Farah, MPT
--- NOTE | 2022-11-07 10:31 | HP.PTDCSUM ---
It has been my pleasure to treat DIONI WEST referred by YVES SKY, with the diagnosis of Left post-traumatic OA and meniscal tear complex... menisectomy for a total of 17 visit(s). Discharge Date: 11/07/22 Please see the following information for a summary of their discharge status. Subjective: Pt reports that he feels like he is ready to be done. Pt has skied several times with no pain. Pt reports that his calf is still tight. L knee Pain Intensity (Out of 10): 3 % Improvement: 98 Objective/Function: Stairs: up and down stairs recip... less tightness in the L knee if does the bike on low seat to push out inflammation prior to stairs. Goal 1:: I HEP Goal Progress: Goal Met Goal 2:: Increase strength on the L to be able to go up and down stairs recip with no hand rails with no signs of weakness Goal Progress: Goal Met Goal 3:: Be able to walk with no antalgic gait and good heel to toe gait pattern Goal Progress: Goal Met Goal 4:: Be able to return to skiing with no pain and not stability issues Goal Progress: Goal Met Goal 5:: Be able to do SLB activities for 2 minutes without fatigue or LOB Goal Progress: Not Progressing Plan: DC PT. Advised pt to continue with single leg balance activities and RDL activities. Discharge Comments: DC PT to HEP If there are questions or concerns regarding this patient's physical therapy, please feel free to call me at [phone]. Thank you for the referral of this patient. Sincerely, Chely Farah, MPT Balance/Gait/Functional tests - Balance/Special Test Scores Lower Extremity Functional Score: 79
== END 2022-11-07 19:00 | disposition home or self-care (01) ==
LOC: PT 10:00
PROVIDERS: PCP Family Medicine Geriatric Medicine
DX: S83.232D Complex tear of medial meniscus, current injury, left knee, subsequent encounter (principal); M17.32 Unilateral post-traumatic osteoarthritis, left knee
CPT/HCPCS: 97016; 97110; 97161; 97530

== ENCOUNTER → 2022-12-19 | Outpatient (CLI) | payer MEDICARE, OTHER, SELFPAY ==
--- NOTE | 2022-12-19 12:35 | RAD_ITS ---
HISTORY: NECK PAIN. TECHNIQUE: XR Spine Cervical 2 or 3 Views. COMPARISON: None. FINDINGS: VERTEBRAE: Vertebral body heights maintained. No acute fracture identified. ALIGNMENT: No significant anterior or posterior subluxation. Preservation of the cervical lordosis. INTERVERTEBRAL DISCS: Degenerative osteophytes and degenerative endplate changes at multiple levels with intervertebral disc space narrowing at C6-7. SOFT TISSUES: No significant prevertebral soft tissue swelling. RAD/Cerv Spine 2 or 3 Views IMPRESSION: No acute fracture or dislocation identified in the cervical spine. Spondylosis of C6/7. Electronically Signed: Edna Lopez MD at 8:41 EST ,
== END | disposition home or self-care (01) ==
LOC: RAD 12:29
PROVIDERS: PCP Family Medicine Geriatric Medicine; Referring Provider Family Medicine Geriatric Medicine; Visit Provider Family Medicine Geriatric Medicine
DX: M54.2 Cervicalgia (principal)
CPT/HCPCS: 72040

== ENCOUNTER → 2023-01-07 | Outpatient (CLI) | payer MEDICARE, OTHER, SELFPAY ==
--- NOTE | 2023-01-07 08:54 | US_ITS ---
Examination: Right upper quadrant ultrasound INDICATION: Gallstones. TECHNIQUE: A dedicated right upper quadrant ultrasound was obtained including Doppler imaging. COMPARISON: December 09, 2020 FINDINGS: The liver is within normal limits. There is hepatopedal flow of the portal vein. There is a gallstone within the gallbladder. There is no gallbladder wall thickening. There is no pericholecystic fluid. The common bile duct measures 2.1 mm. The pancreas is within normal limits. The right kidney measures 9.9 cm in length. There is no hydronephrosis. There is a 4.8 x 2.8 x 6.0 cm exophytic cyst arising from the right kidney that has increased in size since the prior CT of the abdomen previously measuring up to 4.3 cm. There is an additional complex 1.2 x 1.1 x 1.2 cm right renal cyst with no internal vascularity. US/Abdomen Limited IMPRESSION: Cholelithiasis with no associated pericholecystic fluid nor gallbladder wall thickening. Right renal cysts, cannot entirely exclude a neoplastic process, recommend MRI with contrast for further characterization. Electronically Signed: Mona Weiss MD at 10:03 EDT ,
== END | disposition home or self-care (01) ==
LOC: US 08:52
PROVIDERS: PCP Family Medicine Geriatric Medicine; Referring Provider Family Medicine Geriatric Medicine; Visit Provider Family Medicine Geriatric Medicine
DX: K80.20 Calculus of gallbladder without cholecystitis without obstruction (principal)
CPT/HCPCS: 76705

== ENCOUNTER 2023-01-28 20:35 | Observation (INO) | payer MEDICARE, OTHER, SELFPAY ==
[2023-01-28] VITALS (16 sets, daily range): BP systolic 114–133; BP diastolic 55–87; PULSE 74–103; RESP 14–18; TEMP 36.1–36.7; O2SAT 87–100; BMI 27.1; BMI 28.3
--- NOTE | 2023-01-28 | GALL_PTH ---
PATIENT: DIONI WEST LOC: [facility] U#:[id number] AGE/SX: 72/M ROOM: PA312 RE01/28/[address]: Dr. Francisco Cohn MD : 1950 BED: 1 DIS: 01/29/2023 SPEC #: [id number] RECD: 01/28/23 14:49 STATUS: IRAJ GARCIA #: [id number] TAJ: 01/28/23 00:[address]: Francisco Cohn DEPT: SURGICAL PATHOLOGY RECD BY: Joseph Dubois ENTERED: 01/29/23 10:02 SP TYPE: WALT HERRERA DR: Dr. Tj So MD Tissues: Gallbladder, NOS Procedures: Surgery Specimen Level III HEADER OPERATION: Laparoscopic cholecystectomy with IOC PRE-OP DIAGNOSIS: Cholelithiasis TISSUE SUBMITTED: Gallbladder MICROSCOPIC DIAGNOSIS Gallbladder, cholecystectomy: Chronic cholecystitis and cholelithiasis. SJ:nakul 01/30/2023 MICROSCOPIC DESCRIPTION Slides are reviewed. GROSS DESCRIPTION Received is one container labeled with the patient's name and designated gallbladder. The specimen consists of a gallbladder measuring 7.0 cm in length and up to 3.0 cm in diameter. The external surface is pink-griffin, smooth and glistening for the most part. Focally it is granular, hemorrhagic and contains cautery artifact. The gallbladder contains a small amount of green-yellow mucoid bile and one greenish-brown mulberry stone measuring 0.7 in greatest dimension. The mucosa is bile-stained and without any mass lesions. The gallbladder wall measures up to 0.3 cm in thickness. Bookseamer Blindstitch sections from the gallbladder and the cystic duct are submitted in one cassette. / SJ:nakul 01/29/2023 TC:4 CPT: 36693
[2023-01-28] MEDS: Lactated Ringers 1,000 ML 15 ML IV ×2 (13:11→15:52)
--- NOTE | 2023-01-28 13:23 | PCM.HP.BLA ---
History and Physical Date of Admission: 01/28/23 Intake Vital Signs ? 01/17/2309:00 Height 5 ft 5 in Weight: 167 lb BMI 27.8 BP 118/78 Blood Pressure Location Rt brachial Position Sitting Respiration 16 Intake Visit Reasons:?GALLBLADDER Chief Complaint: gallbladder Nuclear Reactor Technician Required: No Is patient in pain?: No Allergies Penicillins Allergy (Intermediate, Verified 01/17/23 08:59) rash/hivesniacin Allergy (Mild, Verified 01/17/23 08:59) YvomBsrmbsx-Psp-Evi Reductase Inhibitor Allergy (Mild, Verified 01/17/23 08:59) rashzinc oxide [From Z-Bum] Allergy (Mild, Verified 01/17/23 08:59) rash PFSH Medical History? Erectile dysfunction Family history of coronary artery disease Hypercholesteremia lymphadenopathy bilateral axilla Surgical History? History of repair of anterior cruciate ligament of left knee History of tonsillectomy Family History? Father?? CAD (coronary artery disease),? Onset Age: 62 ?? ? age 77 from CAD Cancer ?? ? lymphomaBrother Cancer ?? ? lymphomaMother Cancer ?? ? lymphoma Social History? Smoking Status:? Never smoker alcohol intake:? never substance use type:? does not use caffeine:? Yes Type: carbonated beverages Number of servings: 1 HPI HPI HPI: Patient is a 72-year-old male here with right upper quadrant pain.? Patient has right upper quadrant pain and epigastric pain that happens episodically.? When these episodes happen they last for several hours.? They happen around an hour after eating.? He denies any nausea or vomiting. ROS General General: No weight change, appetite, fatigue, colon cancer, breast cancer or weakness HEENT HEENT: No difficulty swallowing, eye injury, eye surgery, swollen glands or hoarseness Endo Endocrine: No thyroid disease, diabetes mellitus, thyroid cancer, Hair loss, heat intolerance or cold intolerance Skin Skin: No rash or changing moles Breast Breast: No left breast lump, right breast lump, nipple discharge, breast pain, abnormal mammogram, abnormal US or breast enlargement Musc Musculoskeletal: No back problems, arthritis, rheumatoid arthritis, gout or joint pain Cardio Cardiovascular: No murmur, pacemaker, heart disease, atrial fibrillation, high blood pressure, heart attack, heart stent, palpitations, shortness of breat with exertion or chest pain Psych Psychiatric: No depression, anxiety or hearing voices Resp Respiratory: No shortness of breath, No sleep apnea, No cough, No COPD, No asthma, No emphysema and No wheezing Gastro Gastrointestinal: No abdominal pain, No nausea or vomiting, No diarrhea, No constipation, No blood in stool, No acid reflux, No hemorrhoids, No ulcers, No gallbladder problem and No black,tarry stools Roberto Hematologic: No blood thinners, No blood disorders, No bleeding, No anemia and No blood clots Neuro Neurologic: No system reviewed and no additional complaints, except as documented, No as per HPI, No abnormal gait, No abnormal hearing, No abnormal movements, No abnormal speech, No behavioral changes, No burning sensations, No confusion, No convulsions, No disequilibrium, No dizziness, No localized weakness, No frequent falls, No headache(s), No lack of coordination, No loss of vision, No memory loss, No numbness, No other visual disturbances, No radicular pain, No restless legs, No sensory deficit, No syncope, No tingling, No tremor(s), No weakness and No other Exam Const General: cooperative Orientation: alert and oriented x3 HENMT Head: normal to inspection Neck Neck: normal visual inspection and full ROM Chest Chest palpation & inspection: normal inspection of the chest Resp Effort & Inspection: normal respiratory effort Auscultation: clear to auscultation bilaterally Cardio Rate: regular rate Rhythm: regular rhythm GI Inspection: non-distended Palpation: soft and nontender Skin General: no rashes or lesions noted Neuro General: patient alert and patient oriented x3 Extrem General: full ROM Psych Appearance: grossly normal Mental Status: mental status grossly normal Assessment and Plan Assessment and Plan (1) Cholelithiasis: ?Status:?Acute ?Qualifiers: ?Cholelithiasis location:?gallbladder??Cholecystitis presence:?without cholecystitis??Biliary obstruction:?without biliary obstruction? Qualified Code(s):?K80.20 - Calculus of gallbladder without cholecystitis without obstruction ?Plan: Patient has cholelithiasis and biliary colic with one large gallstone on ultrasound.? I recommended laparoscopic cholecystectomy and discussed this with him in detail.? Patient is in agreement to proceed with laparoscopic cholecystectomy.? I discussed the procedure in detail with the patient.? I discussed the risks, benefits, and alternatives of the procedure.? I discussed the risks including but not limited to bleeding, infection, injury to surrounding organs such as the liver, bile duct, bowels.? I did discuss the possibility of having to convert to an open procedure as well as the possibility that if any injuries occurred this may necessitate further surgery at a tertiary care center. Francisco Cohn MD Pager: [facility] [address] [place] [address] [address] [place] [address] Office: I have examined the patient and the H&P has been reviewed. There are no clinical changes since date of exam.
[2023-01-28] MEDS: Clindamycin 900 MG/50 ML BAG 75 MG IV (13:57)
[2023-01-28] MEDS: Bupivacaine 0.25% 30 ML Vial (13:57)
--- NOTE | 2023-01-28 14:15 | RAD_ITS ---
CLINICAL HISTORY: Male, 72 years old. Right upper quadrant pain PROCEDURE: CHOLANGIOGRAM - intraoperative FLUOROSCOPY TIME (if supplied): 15.8 seconds Placement of the catheter and the procedure were performed by: Operating surgeon Fluoroscopy was provided by vascular technologist sonographer, who was present in the room time of the procedure. TECHNIQUE: (Fluoroscopic guided intraoperative cholangiogram was performed in the anterior projection. FINDINGS: 103 images were obtained during the study for documentation purposes. For more complete information recommend correlation with surgical notes.) RAD/Cholangiogram/ O R,Initial IMPRESSION: Fluoroscopic guided intraoperative cholangiogram Electronically Signed: Gaurav Castillo MD at 23:02 EDT ,
--- NOTE | 2023-01-28 14:53 | PCM.OPRPT ---
Report of Operation Date of Procedure: 01/28/23 Pre-Operative Diagnosis: Cholelithiasis and biliary colic Post-Operative Diagnosis: Same Surgery/Procedure Performed:: Laparoscopic cholecystectomy with cholangiogram Specimen's removed: Gallbladder Description of Procedure: After obtaining informed consent patient was brought back to the operating room. General anesthesia was induced. The abdomen was prepped and draped in usual sterile fashion. A small midline incision was made superior to the umbilicus and deepened to the level of fascia. The fascia was elevated and incised. Next the peritoneum was elevated and incised in the same fashion. Finger sweep was performed and the Stinson trocar was placed into the abdomen. The balloon was inflated. The abdomen was inflated to 15 mmHg. Next a camera was introduced into the abdomen and the abdomen was inspected. Next under direct visualization three 5-mm ports were placed one subxiphoid and 2 subcostal. Next the gallbladder was elevated and retracted toward the right shoulder. The peritoneum was stripped from the gallbladder. The infundibulum was located and retracted laterally. Next the triangle of Calot was dissected and the cystic duct and cystic artery were identified. Cholangiograms were performed. The Echols clamp was used to clamp across the infundibulum and the catheter needle was inserted into the gallbladder. Under fluoroscopy contrast was instilled into the gallbladder and the common duct, cystic duct as well as proximal hepatic ducts were identified. There was good filling of the duodenum. There were no filling defects noted in the common bile duct. The clamp was removed as well as the needle and the infundibulum was grasped once more. Three hemolock clips were placed across the cystic duct. The cystic duct was then divided leaving 2 clips on the stump. The cystic artery was clipped and divided in the same fashion. The hook cautery was then used to take the gallbladder off of the gallbladder bed. Hemostasis was obtained. Gallbladder fossa was irrigated and no active bleeding or bile leakage was noted. Next the camera was introduced in the subxiphoid port. An Endopouch bag was placed through the umbilical port and the gallbladder was placed into it. The gallbladder was then removed through the umbilical incision. The camera was then reinserted through the umbilical port. The gallbladder fossa was inspected once more and noted to be hemostatic with no leaking bile. The abdomen was suctioned dry. The 5 mm ports were removed under direct visualization. The umbilical port was then removed and the air was removed from the abdomen. Next using an 0 Vicryl suture the umbilical fascia was closed in a [id number] fashion. The umbilical port site was irrigated local anesthetic was administered to all the incisions. All the incisions were closed with interrupted subcuticular 4-0 Monocryl sutures followed by Steri-Strips and dressings. The patient was awoken and taken to PACU in stable condition. Admit VTE Documentation VTE Mechan Device Prophylaxis: SCD's
--- NOTE | 2023-01-28 14:54 | DCINST_ITS ---
Discharge Instructions Procedure Gallbladder Diet Discharge Diet: Light diet - advance as tolerated Activity Discharge Activity: May Not Drive (for 2-3 days or while taking narcotic pain medications.) and - (Do not drive, work heavy equipment or sign legal documents for 24 hours.) May shower in (days): 1 Lifting Restrictions: 20 lbs for 2 weeks Additional Activity Instructions:: Pain medication may cause nausea. You should typically eat light foods as you take your pain medications. Pain medication may also cause constipation. If this is a problem for you, please discuss with your doctor. Dressing / Incision Call your doctor if your incision/area has: Continuous Slow Oozing, Sudden Increased Bleeding, Increased Pain/ Swelling, Increased Redness and Foul Smelling Discharge Call your doctor if you observe: Fever of 101 or Higher Suture Line Care: Avoid Pulling/Pushing and Avoid Pinching/Bending Remove Dressing in: 2 days Additional Dressing/Incision Instructions:: Leave operative bandaids on for 2 days. When you remove dressing, leave Steri-Strips on until your follow-up appointment, or until the Steri-Strips fall off on their own. Follow Up Care Please Follow Up With: Francisco Cohn MD When: Please call to schedule 2 week follow up appointment. [phone] Test Results: Test results from this visit will be discussed in further detail at your follow- up appointment, if applicable. Discharge Plan Admission Attending Provider: Francisco Cohn Primary Care Provider: Tj So Chi Discharge Orders/Prescriptions Prescriptions: New hydrocodone-acetaminophen 5-325 mg tablet 1 tab PO Q4H PRN (Reason: pain) 5 Days Qty: 20 0RF Other Ambulatory Orders: 12 Lead EKG (Routine) Timeframe: 20230128 Location: None Selected Ordered By: Dr. Kb Jefferson Referrals / Follow Up: Tj So Chi, MD [Primary Care Provider] - Disposition Disposition (needs filled in before D/C Order can be placed): Home, Self Care
--- NOTE | 2023-01-28 19:40 | SUR.PHASEII ---
Pt resting in bed, remains drowsy, daughter at bedside, taking ice chips and jello, had episode of dry heaves. Pt and daughter do not want Compazine due to the side effect of drowsiness. Pt expressed that he wants to go home. Discharge criteria discussed with pt and daughter, Pt states he is unable to sit at side of bed or attempt to void. Pt on room air, sats 97% Encouragement given. Will monitor and re-evaluate.
--- NOTE | 2023-01-28 20:42 | PCM.PN.BLA ---
Assessment & Plan Assessment/Plan (1) Cholelithiasis: QUALIFIERS: Cholelithiasis location: gallbladder Cholecystitis presence: without cholecystitis Biliary obstruction: without biliary obstruction Qualified Code(s): K80.20 - Calculus of gallbladder without cholecystitis without obstruction PLAN: Plan Patient is having a lot of postoperative nausea, unable to tolerate diet. Sleepy from narcotic pain control. Unable to urinate. Will admit for the night for observation Francisco Cohn
[2023-01-28] MEDS: 0.9% Normal Saline 1,000 ML 60 ML IV (20:58)
[2023-01-29] VITALS (7 sets, daily range): BP systolic 103–123; BP diastolic 63–75; PULSE 89–100; RESP 16–18; TEMP 36.6–36.8; O2SAT 91–94
[2023-01-29] MEDS: Ondansetron 4 MG/2 ML Vial IV ×2 (01:51→08:21)
[2023-01-29] MEDS: 0.9% Saline Lock 10 ML Syringe IV ×2 (01:51→08:21)
[2023-01-29 06:14] LABS: Absolute Lymphocyte Count 1.02 X10^3/uL (0.83-4.51); Absolute Neutrophil Count 10.4 X10^3/uL (2.0-7.7); Basophil# 0.01 X10^3/uL; Basophil% 0.1 % (0-1); Hematocrit 45.6 % (40-54); Hemoglobin 14.9 g/dL (13.0-16.5); Lymphocyte # 1.02 X10^3/ul (0.83-4.51); Lymphocyte % 8.2 % (19-41); Mean Corp Hgb Conc 32.7 g/dL (32-36); Mean Corpuscular Hgb 28.9 pg (27.0-32.0); Mean Corpuscular Volume 88.5 fL (80-94); Mean Platelet Vol. 9.4 fl (6.2-12.0); Monocyte# 0.87 X10^3/uL; NRBC Flagged by Analyzer 0 % (0-5); Neutrophil # 10.41 X10^3/uL (2.7-7.7); Neutrophil % 84.1 % (47-70); Platelet Count 215 K/mm3 (150-450); RBC Distribution Width CV 14.2 % (11.6-14.6); Red Blood Count 5.15 M/mm3 (4.6-6.2); White Blood Count 12.4 K/mm3 (4.4-11.0)
[2023-01-29 06:37] LABS: Anion Gap 3 (5-15); BUN 16 mg/dL (7-18); BUN/Creat Ratio 16.9 RATIO (10-20); Calcium,Total 8.8 mg/dL (8.5-10.1); Chloride 106 mmol/L (98-107); Creatinine, Serum 0.95 mg/dL (0.70-1.30); EST Glomerular Filtration Rate 83 mL/min (>60); Est Glom Filt Rate - Afr Amer 100 mL/min (>60); Estimated Creatinine Clearance 57.99 ml/min; Glucose 134 mg/dL (74-106); Potassium 4.3 mmol/L (3.5-5.1); Sodium Level 138 mmol/L (136-145)
[2023-01-29] MEDS: Ibuprofen 600 MG Tablet PO (08:20)
[2023-01-29] MEDS: Pantoprazole Sodium 40 MG Tablet PO (08:21)
[2023-01-29] MEDS: 0.9% Normal Saline 1,000 ML 60 ML IV (09:04)
[2023-01-29 09:35] LABS: Bedside Glucose 101 mg/dL (74-106)
== END 2023-01-29 15:11 | disposition home or self-care (01) ==
LOC: SDC 21:02 → MS3 21:23
PROVIDERS: Admitting Provider Surgery; PCP Family Medicine Geriatric Medicine; Referring Provider Surgery; Visit Provider Surgery
PROC: (CPT 47610; principal; 2023-01-28 13:50)
DX: K80.10 Calculus of gallbladder with chronic cholecystitis without obstruction (principal); E78.00 Pure hypercholesterolemia, unspecified; Z86.16 Personal history of COVID-19; R06.09 Other forms of dyspnea
CPT/HCPCS: 47563; 00790; 36415; 74300; 76000; 80048; 82962; 85025; 88304; 93005; 96374; 96376; 99221; J7030; J7120; A4216; G0378; J2405

== ENCOUNTER → 2023-08-08 | Outpatient (CLI) | payer MEDICARE, OTHER, SELFPAY ==
[2023-08-08 10:05] LABS: Absolute Lymphocyte Count 1.63 X10^3/uL (0.83-4.51); Absolute Neutrophil Count 3.8 X10^3/uL (2.0-7.7); Basophil# 0.03 X10^3/uL; Basophil% 0.4 % (0-1); Eosinophils% 8.9 % (0-5); Hematocrit 46.9 % (40-54); Hemoglobin 15.1 g/dL (13.0-16.5); Lymphocyte # 1.63 X10^3/ul (0.83-4.51); Lymphocyte % 24.1 % (19-41); Mean Corp Hgb Conc 32.2 g/dL (32-36); Mean Corpuscular Hgb 28.6 pg (27.0-32.0); Mean Corpuscular Volume 88.8 fL (80-94); Mean Platelet Vol. 9.2 fl (6.2-12.0); Monocyte% 10.4 % (0-10); NRBC Flagged by Analyzer 0 % (0-5); Neutrophil # 3.76 X10^3/uL (2.7-7.7); Neutrophil % 55.8 % (47-70); Platelet Count 234 K/mm3 (150-450); RBC Distribution Width CV 14.2 % (11.6-14.6); RBC Distribution Width SD 45.6 fl (35.1-43.9); Red Blood Count 5.28 M/mm3 (4.6-6.2); White Blood Count 6.8 K/mm3 (4.4-11.0)
[2023-08-08 10:33] LABS: Vitamin D,25 Hydroxy 22.9 ng/mL
[2023-08-08 10:47] LABS: LDH 194 U/L (87-241)
[2023-08-08 11:26] LABS: ALB/GLOB Ratio 0.9 RATIO (0.9-2.4); AST(SGOT) 14 U/L (15-37); Alanine Aminotransfer ALT/SGPT 23 U/L (16-61); Albumin, Serum 3.2 g/dL (3.2-5.0); Alkaline Phosphatase 126 U/L (45-117); Anion Gap 7 (5-15); BUN 17 mg/dL (7-18); BUN/Creat Ratio 19.2 RATIO (10-20); Calcium,Total 8.7 mg/dL (8.5-10.1); Chloride 107 mmol/L (98-107); Cholesterol 187 mg/dL (200); Creatinine, Serum 0.89 mg/dL (0.70-1.30); EST Glomerular Filtration Rate 89 mL/min (>60); Est Glom Filt Rate - Afr Amer 108 mL/min (>60); Globulin 3.7 g/dL (2.2-4.2); Glucose 110 mg/dL (74-106); High Density Lipoprotein 51 mg/dL; Protein, Total 6.9 g/dL (6.4-8.2); Sodium Level 141 mmol/L (136-145); Thyroid Stim Hormone (TSH) 1.42 uIU/mL (0.358-3.74); Triglycerides 117 mg/dL; Very Low Density Lipoprotein 23 mg/dL (5-40)
== END | disposition home or self-care (01) ==
LOC: POLAB3 09:02
PROVIDERS: Internal Medicine Hematology & Oncology; PCP Family Medicine Geriatric Medicine; Visit Provider Family Medicine Geriatric Medicine
DX: R53.83 Other fatigue (principal); E78.5 Hyperlipidemia, unspecified; E55.9 Vitamin D deficiency, unspecified
CPT/HCPCS: 36415; 80053; 80061; 82306; 83615; 84443; 85025

== ENCOUNTER → 2023-09-17 | Outpatient (CLI) | payer MEDICARE, OTHER, SELFPAY ==
[2023-09-17 12:14] LABS: Absolute Lymphocyte Count 1.42 X10^3/uL (0.83-4.51); Basophil# 0.02 X10^3/uL; Basophil% 0.3 % (0-1); Eosinophil# 0.47 X10^3/uL; Eosinophils% 7.2 % (0-5); Hematocrit 50.1 % (40-54); Hemoglobin 15.6 g/dL (13.0-16.5); Lymphocyte # 1.42 X10^3/ul (0.83-4.51); Lymphocyte % 21.8 % (19-41); Mean Corp Hgb Conc 31.1 g/dL (32-36); Mean Corpuscular Hgb 28.1 pg (27.0-32.0); Mean Corpuscular Volume 90.1 fL (80-94); Monocyte# 0.56 X10^3/uL; Monocyte% 8.6 % (0-10); NRBC Flagged by Analyzer 0 % (0-5); Neutrophil # 3.99 X10^3/uL (2.7-7.7); Neutrophil % 61.3 % (47-70); Platelet Count 222 K/mm3 (150-450); RBC Distribution Width CV 14.1 % (11.6-14.6); RBC Distribution Width SD 47.2 fl (35.1-43.9); Red Blood Count 5.56 M/mm3 (4.6-6.2); White Blood Count 6.5 K/mm3 (4.4-11.0)
[2023-09-17 12:29] LABS: AST(SGOT) 17 U/L (15-37); Alanine Aminotransfer ALT/SGPT 23 U/L (16-61); Albumin, Serum 3.5 g/dL (3.2-5.0); Alkaline Phosphatase 122 U/L (45-117); Bilirubin, Direct 0.23 mg/dL (0.00-0.30); Globulin 3.5 g/dL (2.2-4.2)
[2023-09-17 13:09] LABS: Hepatitis B Surface Antibody Reactive; Hepatitis B Surface Antigen Non-Reactive (Nonreactive); Hepatitis C Antibody Non-Reactive (Nonreactive)
[2023-09-20 11:09] LABS: Hepatitis B Core Ab Total Negative (Negative); QNTFERON TB Mitogen Value > 10.00 IU/mL (.); QNTFERON TB Nil Value 0.03 IU/mL (.); QNTFERON TB1+ Ag Value 0.03 IU/mL (.); QNTFERON TB2+ Ag Value 0.02 IU/mL (.); QNTIFERON TB Positive Criteria Negative (Negative)
== END | disposition home or self-care (01) ==
LOC: MTLAB 10:38
PROVIDERS: PCP Family Medicine Geriatric Medicine; Referring Provider Dermatology; Visit Provider Dermatology
DX: L40.0 Psoriasis vulgaris (principal); L40.8 Other psoriasis; L29.8 Other pruritus; Z79.899 Other long term (current) drug therapy
CPT/HCPCS: 36415; 80076; 85025; 86480; 86704; 86706; 86803; 87340

== ENCOUNTER → 2024-05-04 | Outpatient (CLI) | payer MEDICARE, OTHER, SELFPAY | END | disposition home or self-care (01) | LOC: POLAB3 12:04 | PROVIDERS: PCP Family Medicine Geriatric Medicine; Visit Provider Family Medicine Geriatric Medicine | DX: R68.83 Chills (without fever) (principal) | CPT/HCPCS: 87631 ==

== ENCOUNTER → 2024-07-21 | Outpatient (CLI) | payer MEDICARE, OTHER, SELFPAY | END | disposition home or self-care (01) | LOC: POLAB3 16:18 | PROVIDERS: PCP Family Medicine Geriatric Medicine; Visit Provider Family Medicine Geriatric Medicine | DX: R68.83 Chills (without fever) (principal) | CPT/HCPCS: 87631 ==

== ENCOUNTER → 2024-08-13 | Outpatient (CLI) | payer MEDICARE, OTHER, SELFPAY ==
[2024-08-13 09:15] LABS: Absolute Lymphocyte Count 1.63 X10^3/uL (0.83-4.51); Absolute Neutrophil Count 3.9 X10^3/uL (2.0-7.7); Basophil# 0.03 X10^3/uL; Basophil% 0.5 % (0-1); Eosinophil# 0.32 X10^3/uL; Eosinophils% 4.8 % (0-5); Hematocrit 47.2 % (40-54); Hemoglobin 15.5 g/dL (13.0-16.5); Lymphocyte # 1.63 X10^3/ul (0.83-4.51); Lymphocyte % 24.7 % (19-41); Mean Corp Hgb Conc 32.8 g/dL (32-36); Mean Corpuscular Hgb 29.4 pg (27.0-32.0); Mean Corpuscular Volume 89.6 fL (80-94); Mean Platelet Vol. 9.1 fl (6.2-12.0); Monocyte# 0.68 X10^3/uL; Monocyte% 10.3 % (0-10); NRBC Flagged by Analyzer 0 % (0-5); Neutrophil # 3.92 X10^3/uL (2.7-7.7); Neutrophil % 59.2 % (47-70); Platelet Count 241 K/mm3 (150-450); RBC Distribution Width CV 14.2 % (11.6-14.6); RBC Distribution Width SD 46.1 fl (35.1-43.9); Red Blood Count 5.27 M/mm3 (4.6-6.2); White Blood Count 6.6 K/mm3 (4.4-11.0)
--- OUTSIDE RECORDS SUMMARY | 2024-08-13 09:56 | XMS RPT_ITS | CCD ---
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 Name Role Phone ROBSON KEANE PA-C Attending Bernice keller PHYSICIAN, NOT RECORDED Primary Care Unavaila Tj De Chi Primary Care Provider SELF Referring Unavailable TERESITA IQBAL Attending Unavailable Allergies Allergy Classification Reported Allergen(s) Allergy Type Date of Onset Reaction(s) Facility (1 source) Cinnamon Preparation Drug Allergy 4 [facility] Work Phone: (1 source) HMG-CoA reductase inhibitor Drug Allergy 4 [facility] Work Phone: (2 sources) Penicillins; Translations: [PENICILLINS] Propensity to adverse reactions 3 [facility] Work Phone: (2 sources) Sulfonamides (Antibiotic); Translations: [SULFA (SULFONAMIDE ANTIBIOTICS)] Drug Allergy 5 [facility] Medications Completed/Discontinued Medications Medication Drug Class(es) Dates Sig (Normalized) Sig (Original) benzonatate 200 mg oral capsule (1 source) Non-narcotic Antitussive Start: 10-22-2014 End: 12-10-2023 take 1 capsule by mouth twice daily as needed for cough Benzonatate (TESSALON) 200 mg capsule Indications: URI (upper respiratory infection) Take 200 mg by mouth twice daily as needed for Cough. Swallow whole please. 10 capsule 0 10/22/2014 12/10/2023 Discontinued Comment on above: Take 200 mg by mouth twice daily as needed for Cough. Swallow whole please. 1 ml guselkumab 100 mg/ml prefilled syringe (1 source) Interleukin-23 Antagonist guselkumab (TREMFYA) 100 mg/mL Inject 100 mg subcutaneously every 4 weeks. 0 Active Comment on above: Inject 100 mg subcut aneously every 4 weeks. Problems Active Problems Problem Classification Problem Date Documented Da te Episodic/Chronic Other nervous system disorders (1 source) Carpal tunnel syndrome; Translations: [Carpal tunnel syndrome, unspecified upper limb] Onset: 07-30-2003 02-14-2004 Chronic Residual codes; unclassified (1 source) Abnormal jaw movement; Translations: [Other general symptoms and signs] 12-10-2023 Episodic Past or Other Problems Problem Classification Problem Date Documented Da te Episodic/Chronic Other connective tissue disease (1 source) Neuropathy; Translations: [Neuralgia, neuritis, and radiculitis, unspecified] Onset: 07-30-2003 02-14-2004 Episodic Results Test Name Value Interpretation Reference Range Facil enrique Ritter 12-10-2023 CNOV Office Visit ([facility] ) MANISH APONTE PHD ([id number]) 1950 M Date Time Provider Department 12/10/23 10:00 AM TERESITA IQBAL [facility] During your visit today, we recorded the following information about you: Pulse Blood pressure Weight Height 79/minute 118/71 73.8 kg 1.626 m Teresita Iqbal MD 12/10/2023 3:08 PM Signed [facility] ASSESSMENT: Family concern over cognition. [place] is reassuring on today's assessment. Episodes of jaw opening while concentrating or watching TV. Consistent with mannerisms. not consistent with epileptic etiology PLAN: No indication to pursue neurological testing such as MRI nor EEG. Plan of care discussed at length and detailed in after visit summary which is copied below Your intact neurological and cognitive assessments during your visit. Vitamin D supplementation as recommended by Dr So (the once weekly high dose one he recommended). Vitamin B12 supplementation (over the counter 1000 micrograms is reasonable) for general neurological health Discussed in detail brain health measures including regular physical activity, whole foods-based predominantly plant-based diet (meditarrenean style), social engagement and adequat sleep The website below has additional information regarding optimizing your brain health [email or web address] Follow up as the need arises. Total time on encounter - inclusive of documentation and same-day chart and imaging review - 50 minutes. More than 50% of the time spent discussing working diagnosis and plan of care and providing counseling. Portions of this document were completed using voice recognition software. Typographical errors may occur Teresita Iqbal MD Staff Neurologist [facility] December 10, 2023 == Subjective HPI: Manish Aponte PHD is a 73 year old. Right handed gentleman who is self referred at the advice of his for jaw movements and other symptoms as detailed below. His has noticed that he would keep his jaw open when concentrating. She does have a video of him intermittently opening and closing his jaw while watching TV. Dated September 2023. There is no episodes of staring spells during these movements. She sometimes see him perform chewing type movements. He is able to stop doing it when she tries his attention to these movements. There has been little loss of track of time. No history of seizure. No history of stroke She is also worried about his memory. 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 She gave another instance where they were planning trip with other friends to [place]. He had booked a flight to [place] even though the friends had booked a flight going into [place]. He feels that his memory has been adequate. She also feels that that he has become more irritable. He had always been calm and collected. She giving the example where one-time, she had been taking care of of the cat that had belonged to her mom. She was taken aback when she saw him packing up when she asked him what he was doing he stated I am moving out because clearly you care for the More than you do for me . He stated that he was frustrated. Another example was where since 1985 in their bathroom on the towel rack that it would be Mrs Aponte's towel on the front part of the rack and Dr Aponte's towel on the back part of the rack, but that recently he has been throwing his towel over both parts of the rack. Intermittent low back pain - transitory - would go away rather quickly. Non radiating. No neck pain. Rarely if any headaches Sleep : as soon as he hits the pillow he is asleep. Average duration of sleep ~ 5-6 hours. Maybe a little bit more per his . Covid twice - second time in May 2023. 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 Was in the [employer]. 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 Continues to work 2 days a week No current facility-administered medications for this visit. PAST MEDICAL HISTORY Diagnosis Date Dermatological disease plaque psoriasis Hyperlipidemia PAST SURGICAL HISTORY Procedure Laterality Date KNEE LEFT OP SURGERY 08/2022 REMOVAL GALLBLADDER 01/2023 Social History Tobacco Use Smoking status: Never Substance Use Topics Alcohol use: Not Currently Comment: rare No family history on file. ALLERGIES Allergen Reactions Penicillins rash Sulfa (Sulfonamide * Rash Objective REVIEW OF SYSTEMS: GENERAL: No fevers or irritability. HEENT: Negative for headaches, No problems with hearing or vision, no nose bleeds or other nasal problems NECK: Negative for stiffness, lumps or si (more content not included)... Normal [facility] MRI KNEE W/O CONTRAST LEFTon 08-09-2022 MRI KNEE W/O CONTRAST LEFT ORIGINAL EXAMINATION: MRI OF THE LEFT KNEE WITHOUT CONTRAST, 08/08/2022 1:24 pm TECHNIQUE: Multiplanar multisequence MRI of the left knee was performed without the administration of intravenous contrast. COMPARISON: Left knee x-ray 07/31/2022 HISTORY: ORDERING SYSTEM PROVIDED HISTORY: Reason for Exam: Patient jumped off a pickup truck few weeks ago, pain posterior knee, swelling FINDINGS: There is no obvious acute fracture or bone contusion. The medial femorotibial compartment shows high-grade cartilage loss without significant subchondral marrow changes. There is complex tearing of the medial meniscus with a tear at the root of the posterior horn involving the inferior articular surface. The meniscal body is markedly extruded medially with a large amount of intrasubstance signal and horizontal tearing extending to the posterior horn. No significant para meniscal cyst. There may be mild low-grade MCL sprain but no high-grade sprain or tear is seen. The lateral femorotibial compartment shows a small cartilage fissure in the lateral tibial plateau but otherwise no significant cartilage loss. The lateral meniscus is intact. The lateral collateral ligament and other major lateral supporting structures are also normal. The patient is status post ACL repair. The graft shows normal trajectory and integrity but there is some irregularity and attenuation of fibers suggesting graft fraying, degeneration and low-grade tearing. Similar low-grade tearing of the PCL is also suspected. The distal quadriceps and patellar tendons are unremarkable. Other muscles and tendons around the knee are also intact. Low-grade strain of the popliteus muscle is questioned. There is no patellar tracking abnormality or high-grade chondromalacia. A small cartilage fissure is present in the lateral facet near the median ridge. The patellar retinacula and medial patellofemoral ligament are normal. There is a large joint effusion. Thin medial and suprapatellar incomplete plica. Also small medial popliteal cyst with adjacent edema that could be from recent contained rupture. There is nonspecific soft tissue edema around the knee. IMPRESSION: Complex high-grade tear of the body and posterior horn of the medial meniscus with meniscal extrusion. The ACL graft shows some fraying and low-grade partial tearing which is very likely chronic. Similar low-grade tearing of the PCL is also suspected. Large suprapatellar joint effusion with synovial plicae. Small medial popliteal cyst with contained rupture. Questionable grade 1 minor sprain of the medial collateral ligament. Other findings as described above. I have personally reviewed the images of this examination and agree with the resident's findings and interpretation. Interpreted by: Kalyan Herman MD Preliminary Report By: Lena Bragg Electronically signed By Kalyan Herman MD Dictated Date: 08/08/2022 2:41:27 PM Prelim Date: 08/09/2022 8:16:14 AM Sign Date: 08/09/2022 8:16:14 AM Ordering Provider: ROBSON [facility] [place] Vital Signs Date Time Vital Sign Value Performing Clinician Darrell smith 12-10-2023 08:56-0500 Body height 162.6 cm Teresita Iqbal MD Work Phone: [facility] 12-10-2023 08:56-0500 Body weight 73.8 kg Teresita Iqbal MD Work Phone: [facility] 12-10-2023 08:56-0500 Diastolic blood pressure 71 mm[Hg] Teresita Iqbal MD Work Phone: [facility] 12-10-2023 08:56-0500 Heart rate 79 /min Teresita Iqbal MD Work Phone: [facility] 12-10-2023 08:56-0500 Systolic blood pressure 118 mm[Hg] Teresita Iqbal MD Work Phone: [facility] Encounters Encounter Date Encounter Type Care Provider Facility Start: 12-10-2023 End: 12-10-2023 ambulatory SELF Facility:[facility] Start: 12-10-2023 End: 12-10-2023 Patient encounter procedure Teresita Iqbal MD Work Phone: Neurology Comment on above: Abnormal movement of jaw [R68.89] (Primary Dx) Start: 08-08-2022 End: 08-09-2022 ambulatory ROBSON KEANE PA-C Facility:B Plan of Treatment Date Care Activity Detail Author Start: 10-21-2023 Advance Directive Discussion Advance Directive Discussion [facility] Start: 10-21-2023 Depression Assessment Depression Ass essment [facility] Start: 06-21-2023 Covid-19 Vaccine ( season) Covid-19 Vaccine ( season) [facility] Start: 07-19-2017 Urine microalbumin profile DTaP,Tdap,Td Vaccine (1 - Tdap) [facility] Start: 2014 Pneumococcal Vaccine : 65+ (1 of 1 - PCV) Pneumococcal Vaccine: 65+ (1 of 1 - PCV) [facility] Start: 05-11-2011 Shingrix Vaccine (2 of 3) Shingrix V accine (2 of 3) [facility] Start: 2009 RSV Vaccine (1 - 1-d ose 60+ series) RSV Vaccine (1 - 1-dose 60+ series) [facility] Start: 1994 Diabetes Screening Diabetes Screenin g [facility] Start: 1994 Screening for malign ant neoplasm of colon [facility] Start: 1984 Lipid panel Lipid Screening [facility] Start: 1967 Hepatitis C screening Hepatitis C Pr quirino [facility] Payers Date Payer Category Payer Medicare [id number] 2015 Private Health Insurance [id number] 2015 Private Health Insurance HUMANA HU[employer]NA MEDICARE SUPPLEMENT [id number] 2015-Present [phone] [address] [address] [place] [address] Indemnity [id number] 1950 Unknown [id number] Social History Date Type Detail Facility Start: 12-10-2023 Tobacco smoking stat [facility] Never smoked tobacco [facility] Work Phone: Start: 12-10-2023 Alcohol intake Ex-drinker (finding) [facility] Start: 12-10-2023 History of Social function [facility] Start: 12-10-2023 Tobacco use panel [facility] National Score (1-10 0), lower number is lower risk 54 [facility] Start: 1950 Sex Assigned At Not on file [facility] Progress note 12-10-2023 Note Date & Type Note Facility 12-10-2023 Note HNO ID: [id number] Author: TERESITA IQBAL MD Service: ? Author Type: Physician Type: Progress Notes Filed: 12/10/2023 15:08 Note Text: [facility] ASSESSMENT: Family concern over cognition. [place] is reassuring on today's assessment. Episodes of jaw opening while concentrating or watching TV. Consistent with mannerisms. not consistent with epileptic etiology PLAN: No indication to pursue neurological testing such as MRI nor EEG. Plan of care discussed at length and detailed in after visit summary which is copied below Your intact neurological and cognitive assessments during your visit. Vitamin D supplementation as recommended by Dr So (the once weekly high dose one he recommended). Vitamin B12 supplementation (over the counter 1000 micrograms is reasonable) for general neurological health Discussed in detail brain health measures including regular physical activity, whole foods-based predominantly plant-based diet (meditarrenean style), social engagement and adequat sleep The website below has additional information regarding optimizing your brain health [email or web address] Follow up as the need arises. Total time on encounter - inclusive of documentation and same-day chart and imaging review - 50 minutes. More than 50% of the time spent discussing working diagnosis and plan of care and providing counseling. Portions of this document were completed using voice recognition software. Typographical errors may occur Teresita Iqbal MD Staff Neurologist [facility] December 10, 2023 Subjective HPI: Manish Hackett Fadi PHD is a 73 year old. Right handed gentleman who is self referred at the advice of his for jaw movements and other symptoms as detailed below. His has noticed that he would keep his jaw open when concentrating. She does have a video of him intermittently opening and closing his jaw while watching TV. Dated September 2023. There is no episodes of staring spells during these movements. She sometimes see him perform chewing type movements. He is able to stop doing it when she tries his attention to these movements. There has been little loss of track of time. No history of seizure. No history of stroke She is also worried about his memory. 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 She gave another instance where they were planning trip with other friends to [place]. He had booked a flight to [place] even though the friends had booked a flight going into [place]. He feels that his memory has been adequate. She also feels that that he has become more irritable. He had always been calm and collected. She giving the example where one-time, she had been taking care of of the cat that had belonged to her mom. She was taken aback when she saw him packing up when she asked him what he was doing he stated I am moving out because clearly you care for the More than you do for me . He stated that he was frustrated. Another example was where since 1985 in their bathroom on the towel rack that it would be Mrs Aponte's towel on the front part of the rack and Dr Aponte's towel on the back part of the rack, but that recently he has been throwing his towel over both parts of the rack. Intermittent low back pain - transitory - would go away rather quickly. Non radiating. No neck pain. Rarely if any headaches Sleep : as soon as he hits the pillow he is asleep. Average duration of sleep ~ 5-6 hours. Maybe a little bit more per his . Marcoid twice - second time in May 2023. 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 Was in the [employer]. 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 Continues to work 2 days a week No current facility-administered medications for this visit. PAST MEDICAL HISTORY Diagnosis Date Dermatological disease plaque psoriasis Hyperlipidemia PAST SURGICAL HISTORY Procedure Laterality Date KNEE LEFT OP SURGERY 08/2022 REMOVAL GALLBLADDER 01/2023 Social History Tobacco Use Smoking status: Never Substance Use Topics Alcohol use: Not Currently Comment: rare No family history on file. ALLERGIES Allergen Reactions Penicillins rash Sulfa (Sulfonamide * Rash Objective REVIEW OF SYSTEMS: GENERAL: No fevers or irritability. HEENT: Negative for headaches, No problems with hearing or vision, no nose bleeds or other nasal problems NECK: Negative for stiffness, lumps or significant neck swelling RESPIRATORY: Negative for cough, wheezing or respiratory distress CARDIOVASCULAR: Negative for chest pain, syncope, lightheadness or heart racing GI: No nausea, vomiting, or diarrhea : No history of dysuria, frequency or incontinence (more content not included)... [facility] Instructions 12-10-2023 Patient Instructions Note Date & Type Note Facility 12-10-2023 Instructions Teresita Iqbal MD - 12/10/2023 10:35 AM EST Thank you for your visit today at the [facility] We discussed the following during your appointment: Your intact neurological and cognitive assessments during your visit. Vitamin D supplementation as recommended by Dr So (the once weekly high dose one he recommended). Vitamin B12 supplementation (over the counter 1000 micrograms is reasonable) for general neurological health Discussed in detail brain health measures including regular physical activity, whole foods-based predominantly plant-based diet (meditarrenean style), social engagement and adequat sleep The website below has additional information regarding optimizing your brain health [email or web address] Follow up as the need arises. If any questions or concerns arise, you can call and schedule a follow up visit at [phone], option #2 will get you to the help desk associate schedulers. documented in this encounter [facility] History of Present illness Narrative 12-10-2023 Teresita Iqbal MD - 12/10/2023 9:49 AM EST Note Date & Type Note Facility 12-10-2023 History of Presen t illness Narrative Images from the original note were not included. [facility] ASSESSMENT: Family concern over cognition. [place] is reassuring on today's assessment. Episodes of jaw opening while concentrating or watching TV. Consistent with mannerisms. not consistent with epileptic etiology PLAN: No indication to pursue neurological testing such as MRI nor EEG. Plan of care discussed at length and detailed in after visit summary which is copied below Your intact neurological and cognitive assessments during your visit. Vitamin D supplementation as recommended by Dr So (the once weekly high dose one he recommended). Vitamin B12 supplementation (over the counter 1000 micrograms is reasonable) for general neurological health Discussed in detail brain health measures including regular physical activity, whole foods-based predominantly plant-based diet (meditarrenean style), social engagement and adequat sleep The website below has additional information regarding optimizing your brain health [email or web address] Follow up as the need arises. Total time on encounter - inclusive of documentation and same-day chart and imaging review - 50 minutes. More than 50% of the time spent discussing working diagnosis and plan of care and providing counseling. Portions of this document were completed using voice recognition software. Typographical errors may occur Teresita Iqbal MD Staff Neurologist [facility] December 10, 2023 Subjective HPI: Manish Hackett Fadi PHD is a 73 year old. Right handed gentleman who is self referred at the advice of his for jaw movements and other symptoms as detailed below. His has noticed that he would keep his jaw open when concentrating. She does have a video of him intermittently opening and closing his jaw while watching TV. Dated September 2023. There is no episodes of staring spells during these movements. She sometimes see him perform chewing type movements. He is able to stop doing it when she tries his attention to these movements. There has been little loss of track of time. No history of seizure. No history of stroke She is also worried about his memory. 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 She gave another instance where they were planning trip with other friends to [place]. He had booked a flight to [place] even though the friends had booked a flight going into [place]. He feels that his memory has been adequate. She also feels that that he has become more irritable. He had always been calm and collected. She giving the example where one-time, she had been taking care of of the cat that had belonged to her mom. She was taken aback when she saw him packing up when she asked him what he was doing he stated I am moving out because clearly you care for the More than you do for me . He stated that he was frustrated. Another example was where since 1985 in their bathroom on the towel rack that it would be Mrs Aponte's towel on the front part of the rack and Dr Aponte's towel on the back part of the rack, but that recently he has been throwing his towel over both parts of the rack. Intermittent low back pain - transitory - would go away rather quickly. Non radiating. No neck pain. Rarely if any headaches Sleep : as soon as he hits the pillow he is asleep. Average duration of sleep ~ 5-6 hours. Maybe a little bit more per his . Covid twice - second time in May 2023. 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 Was in the [employer]. 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 Continues to work 2 days a week No current facility-administered medications for this visit. PAST MEDICAL HISTORY Diagnosis Date Dermatological disease plaque psoriasis Hyperlipidemia PAST SURGICAL HISTORY Procedure Laterality Date KNEE LEFT OP SURGERY 08/2022 REMOVAL GALLBLADDER 01/2023 Social History Tobacco Use Smoking status: Never Substance Use Topics Alcohol use: Not Currently Comment: rare No family history on file. ALLERGIES Allergen Reactions Penicillins rash Sulfa (Sulfonamide * Rash Objective REVIEW OF SYSTEMS: GENERAL: No fevers or irritability. HEENT: Negative for headaches, No problems with hearing or vision, no nose bleeds or other nasal problems NECK: Negative for stiffness, lumps or significant neck swelling RESPIRATORY: Negative for cough, wheezing or respiratory distress CARDIOVASCULAR: Negative for chest pain, syncope, lightheadness or heart racing GI: No nausea, vomiting, or diarrhea : No history of dysuria, frequency or incontinence MUSCULOSKELETAL: back pain SKIN: Negative for lesions, rash, and itching NEURO: See HPI PHYSICAL EXAM: BP 118/71 Pulse 79 Ht 162.6 cm (5' 4 ) Wt 73.8 kg (162 lb 11.2 oz) BMI 27.93 kg/m General appearance: in no acute distress, pleasant and cooperative. HEENT: atraumatic and normocephalic. Limbs: no edema noted. NEUROLOGICAL EXAMINATION: Mental status: Awake, alert and cooperative. Oriented to self including name/age/. Oriented to place Oriented to time. Speech is fluent with intact comprehension. Good fund of knowledge, intact memory and attention span. No dysarthria nor any expressive aphasia. Follows commands briskly. Cranial nerve evaluation: Funduscopy was deferred. Visual moe were intact to confrontation. Pupils were equally round and reactive to light. Extraocular movements were intact. Face was symmetric with intact sensation. Hearing was grossly intact to finger rub bilaterally. No nystagmus noted. Palate elevation was symmetric. Shoulder shrug was symmetric. Neck movements were intact. Tongue was in midline. Motor evaluation: 5/5 in both arms. 5/5 in both legs. Normal tone noted. No abnormal movements noted. Sensation: Intact to light touch in all extremities. No extinction to bilateral simultaneous stimulation. Reflexes: 2+ in the upper extremities bilaterally 3+ at the level of the knees with subtle cross adductor response 2+ at the ankles Toes were mute. No clonus was noted. Negative Baires's bilaterally. Cerebellar: Finger to nose testing intact bilaterally. Heel to louise testing intact bilaterally. Gait: Gait evaluation : intact. No ataxia noted. [place] [facility]ley cognitive assessment: : Total score Visual spatial/executive: 5/5 Naming /3 Attention: 66. Language: 3/3. (He came up with 17 words that start with the letter F in 60 seconds) Abstraction: 2/2 Delayed recall: 4/5. (Able to recall the fifth item with category cue) Orientation: /6. LABS/DATA: Reviewed in care everywhere. LDL 113. Vitamin D at 22.9 Normal TSH. Vitamin B12 level not checked documented in this encounter [facility] Evaluation note Note Date & Type Note Facility Evaluation note Diagnosis Abnormal movement of jaw [R68.89]- Primary documented in this encounter [facility] Summary Purpose Family History No Family History Records FoundNo Family History Records Found Advance Directives No Advanced Directives Records FoundNo Advanced Directives Records Found Additional Source Comments (unrecognized sect ion and content) No Status Records FoundNo Status Records Found INFORMATION SOURCE (unrecogn ized section and content) DATE CREATED AUTHOR 08/13/2022 [facility] ([place]) DATE CREATED AUTHOR AUTHOR'S ORGANIZ ATION 12/11/2023 [facility] Source Comments (unrecognize d section and content) In the event this informatio n is protected by the Federal Confidentiality of Alcohol and Drug Abuse Patient Records regulations: The Federal rules restrict any use of the information to criminally investigate or prosecute any alcohol or drug abuse patient.[facility] Reason for Visit (unrecogniz ed section and content) Reason Comments New Patient Care Teams (unrecognized sec tion and content) 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 This clinical summary was aggregated from multiple sources. Caution should be exercised in using it in the provision of clinical care. This summary normalizes information from multiple sources, and as a consequence, information in this document may materially change the coding, format and clinical context of patient data. In addition, data may be omitted in some cases. CLINICAL DECISIONS SHOULD BE BASED ON THE PRIMARY CLINICAL RECORDS. [facility] [employer] [facility]. provides no warranty or guarantee of the accuracy or completeness of information in this document.
[2024-08-13 10:15] LABS: Vitamin D,25 Hydroxy 13.1 ng/mL
[2024-08-13 10:45] LABS: International Normalized Ratio 0.9; Partial Thromboplast Time 24.1 Seconds (24.1-36.2); Prothrombin Time (Protime)PT. 12.2 SECONDS (11.7-14.9)
[2024-08-13 10:58] LABS: AST(SGOT) 15 U/L (15-37); Alanine Aminotransfer ALT/SGPT 24 U/L (16-61); Albumin, Serum 3.4 g/dL (3.2-5.0); Alkaline Phosphatase 110 U/L (45-117); Anion Gap 3 (5-15); BUN 16 mg/dL (7-18); BUN/Creat Ratio 18.3 RATIO (10-20); Chloride 107 mmol/L (98-107); Creatinine, Serum 0.87 mg/dL (0.70-1.30); EST Glomerular Filtration Rate 90 mL/min (>60); Est Glom Filt Rate - Afr Amer 109 mL/min (>60); Globulin 3.3 g/dL (2.2-4.2); Glucose 94 mg/dL (74-106); Potassium 4.2 mmol/L (3.5-5.1); Protein, Total 6.7 g/dL (6.4-8.2); Sodium Level 139 mmol/L (136-145)
== END | disposition home or self-care (01) ==
LOC: POLAB3 09:02
PROVIDERS: PCP Family Medicine Geriatric Medicine; Visit Provider Family Medicine Geriatric Medicine
DX: R53.83 Other fatigue (principal); E55.9 Vitamin D deficiency, unspecified; Z87.898 Personal history of other specified conditions
CPT/HCPCS: 36415; 80053; 82306; 84443; 85025; 85610; 85730

== ENCOUNTER → 2024-08-18 | Outpatient (CLI) | payer MEDICARE, OTHER, SELFPAY ==
--- NOTE | 2024-08-18 08:02 | MRI_ITS ---
EXAM: MR ABDOMEN WITHOUT AND WITH INTRAVENOUS CONTRAST CLINICAL INDICATION: CYST RT KIDNEY TECHNIQUE: Multiplanar and multisequence MR images of the abdomen without and with intravenous contrast. CONTRAST: 14 cc of Clariscan IV. COMPARISON: CT scan of the abdomen and pelvis 12/09/2020. FINDINGS: LOWER THORAX: Unremarkable. No pleural effusion. LIVER: Unremarkable. Normal morphology. No focal mass. GALLBLADDER AND BILE DUCTS: Gallbladder not visualized. No intra- or extrahepatic biliary ductal dilation. PANCREAS: Unremarkable. No focal cystic or solid mass. SPLEEN: Unremarkable. Normal size without focal cystic or solid mass. ADRENALS: Unremarkable. No nodules. KIDNEYS AND URETERS: Simple exophytic cyst measuring 6.7 x 3.2 x 2.9 cm arising from the upper pole of the right kidney. No change since prior CT. Small 1 cm exophytic cyst arising from the anterior aspect of the right kidney. No change since prior CT. Normal renal size and position. No hydronephrosis. INTRAPERITONEAL SPACE: Unremarkable. No ascites or other fluid collection. No free air. VASCULATURE: Unremarkable. Abdominal aorta is non-dilated. LYMPH NODES: No enlarged lymph nodes. MRI/MRI Abd WITH and W/O Contrast IMPRESSION: 1. Simple exophytic cyst measuring 6.7 x 3.2 x 2.9 cm arising from the upper pole of the right kidney. No change since prior CT. No follow-up necessary. 2. Small 1 cm exophytic cyst arising from the anterior aspect of the right kidney. No change since prior CT. No follow-up necessary. Electronically Signed: Ambrose Romeo MD at 8:00 EDT ,
--- OUTSIDE RECORDS SUMMARY | 2024-08-18 08:13 | XMS RPT_ITS | CCD ---
Author Organization [facility] Care Team Providers Care Manager Shift Name Role Phone ROBSON KEANE PA-C Attending Bernice keller PHYSICIAN, NOT RECORDED Primary Care Unavaila Tj De Chi Primary Care Provider SELF Referring Unavailable TERESITA IQBAL Attending Unavailable Allergies Allergy Classification Reported Allergen(s) Allergy Type Date of Onset Reaction(s) Facility (1 source) Cinnamon Preparation Drug Allergy 4 [facility] Work Phone: (1 source) HMG-CoA reductase inhibitor Drug Allergy 4 [facility] Work Phone: (2 sources) Penicillins; Translations: [PENICILLINS] Propensity to adverse reactions 3 [facility] Work Phone: (2 sources) Sulfonamides (Antibiotic); Translations: [SULFA (SULFONAMIDE ANTIBIOTICS)] Drug Allergy 5 [facility] Medications Completed/Discontinued Medications Medication Drug Class(es) Dates [...] Facil enrique Ritter 12-10-2023 CNOV Office Visit ([facility] ) MANISH APONTE PHD ([id number]) 1950 M Date Time Provider Department 12/10/23 10:00 AM TERESITA IQBAL [facility] During your visit today, we recorded the following information about you: Pulse Blood pressure Weight Height 79/minute 118/71 73.8 kg 1.626 m Teresita Iqbal MD 12/10/2023 3:08 PM Signed [facility] ASSESSMENT: Family concern over cognition. [place] is reassuring on today's assessment. Episodes of [...] may occur Teresita Iqbal MD Staff Neurologist [facility] December 10, 2023 == Subjective HPI: Manish [...] about his memory. 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 She gave another instance where they were planning trip with other friends to [place]. He had booked a flight to [place] even though the friends had booked a flight going into [place]. 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 Continues to [...] or si (more content not included)... Normal [facility] MRI KNEE W/O CONTRAST LEFTon 08-09-2022 MRI [...] Date: 08/09/2022 8:16:14 AM Ordering Provider: ROBSON [facility] ([place]) Vital Signs Date Time Vital Sign Value Performing Clinician Darrell smith 12-10-2023 08:56-0500 Body height 162.6 cm Teresita Iqbal MD Work Phone: [facility] 12-10-2023 08:56-0500 Body weight 73.8 kg Teresita Iqbal MD Work Phone: [facility] 12-10-2023 08:56-0500 Diastolic blood pressure 71 mm[Hg] Teresita Iqbal MD Work Phone: [facility] 12-10-2023 08:56-0500 Heart rate 79 /min Teresita Iqbal MD Work Phone: [facility] 12-10-2023 08:56-0500 Systolic blood pressure 118 mm[Hg] Teresita Iqbal MD Work Phone: [facility] Encounters Encounter Date Encounter Type Care Provider Facility Start: 12-10-2023 End: 12-10-2023 ambulatory SELF Facility:[facility] Start: 12-10-2023 End: 12-10-2023 Patient encounter procedure Teresita Iqbal MD Work Phone: Neurology Comment on above: Abnormal movement of jaw [R68.89] (Primary Dx) Start: 08-08-2022 End: 08-09-2022 ambulatory ROBSON KEANE PA-C Facility:B Plan of Treatment Date Care Activity Detail Author Start: 10-21-2023 Advance Directive Discussion Advance Directive Discussion [facility] Start: 10-21-2023 Depression Assessment Depression Ass essment [facility] Start: 06-21-2023 Covid-19 Vaccine ( season) Covid-19 Vaccine ( season) [facility] Start: 07-19-2017 Urine microalbumin profile DTaP,Tdap,Td Vaccine (1 - Tdap) [facility] Start: 2014 Pneumococcal Vaccine : 65+ (1 of 1 - PCV) Pneumococcal Vaccine: 65+ (1 of 1 - PCV) [facility] Start: 05-11-2011 Shingrix Vaccine (2 of 3) Shingrix V accine (2 of 3) [facility] Start: 2009 RSV Vaccine (1 - 1-d ose 60+ series) RSV Vaccine (1 - 1-dose 60+ series) [facility] Start: 1994 Diabetes Screening Diabetes Screenin g [facility] Start: 1994 Screening for malign ant neoplasm of colon [facility] Start: 1984 Lipid panel Lipid Screening [facility] Start: 1967 Hepatitis C screening Hepatitis C De quirino [facility] Payers Date Payer Category Payer Medicare [id number] 2015 Private Health Insurance [id number] 2015 Private Health Insurance HUMANA HUMANA MEDICARE SUPPLEMENT [id number] 2015-Present [phone] [address] [address] [place] [address] Indemnity [id number] 1950 Unknown [id number] Social History Date Type Detail Facility Start: 12-10-[address] [facility] Never smoked tobacco [facility] Work Phone: Start: 12-10-2023 Alcohol intake Ex-drinker (finding) [facility] Start: 12-10-2023 History of Social function [facility] Start: 12-10-2023 Tobacco use panel [facility] National Score (1-10 0), lower number is lower risk 54 [facility] Start: 1950 Sex Assigned At Not on file [facility] Progress note 12-10-2023 Note Date & Type Note Facility 12-10-2023 Note HNO ID: [id number] Author: TERESITA IQBAL MD Service: ? Author Type: Physician Type: Progress Notes Filed: 12/10/2023 15:08 Note Text: [facility] ASSESSMENT: Family concern over cognition. [place] is reassuring on today's assessment. Episodes of [...] may occur Teresita Iqbal MD Staff Neurologist [facility] December 10, 2023 Subjective HPI: Manish Hackett [...] about his memory. 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 She gave another instance where they were planning trip with other friends to [place]. He had booked a flight to [place] even though the friends had booked a flight going into [place]. 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 Was in the [employer]. 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 Continues to [...] frequency or incontinence (more content not included)... [facility] Instructions 12-10-2023 Patient Instructions Note Date & Type Note Facility 12-10-2023 Instructions Teresita Iqbal MD - 12/10/2023 10:35 AM EST Thank you for your visit today at the [facility] We discussed the following during your appointment: [...] and schedule a follow up visit at [phone], option #2 will get you to the patient coordinator front desk schedulers. documented in this encounter [facility] History of Present illness Narrative 12-10-2023 Teresita Iqbal MD - 12/10/2023 9:49 AM EST Note Date & Type Note Facility 12-10-2023 History of Presen t illness Narrative Images from the original note were not included. [facility] ASSESSMENT: Family concern over cognition. [place] is reassuring on today's assessment. Episodes of [...] may occur Teresita Iqbal MD Staff Neurologist [facility] December 10, 2023 Subjective HPI: Manish Hackett [...] about his memory. 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 She gave another instance where they were planning trip with other friends to [place]. He had booked a flight to [place] even though the friends had booked a flight going into [place]. 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 Continues to [...] level not checked documented in this encounter [facility] Evaluation note Note Date & Type Note Facility Evaluation note Diagnosis Abnormal movement of jaw [R68.89]- Primary documented in this encounter [facility] Summary Purpose Family History No Family History Records FoundNo Family History Records Found Advance Directives No Advanced Directives Records FoundNo Advanced Directives Records Found Additional Source Comments (unrecognized sect ion and content) No Status Records FoundNo Status Records Found INFORMATION SOURCE (unrecogn ized section and content) DATE CREATED AUTHOR 08/13/2022 [facility] ([place]) DATE CREATED AUTHOR AUTHOR'S ORGANIZ ATION 12/11/2023 [facility] Source Comments (unrecognize d section and content) In the event this informatio n is protected by the Federal Confidentiality of Alcohol and Drug Abuse Patient Records regulations: The Federal rules restrict any use of the information to criminally investigate or prosecute any alcohol or drug abuse patient.[facility] Reason for Visit (unrecogniz ed section and content) Reason Comments New Patient Care Teams (unrecognized sec tion and content) Manager Shift Relationship Specialty Start Date End Date Tj So Chi [address] [facility] [address] [place] [address] PCP - General Gerontology 12/10/23 FOR RECORDS [...] BE BASED ON THE PRIMARY CLINICAL RECORDS. [facility] [employer] [facility]. provides no warranty or guarantee of the accuracy or completeness of information in this document.
== END | disposition home or self-care (01) ==
LOC: MRI 07:57
PROVIDERS: PCP Family Medicine Geriatric Medicine; Referring Provider Family Medicine Geriatric Medicine; Visit Provider Family Medicine Geriatric Medicine
DX: N28.1 Cyst of kidney, acquired (principal)
CPT/HCPCS: 74183; A9575

== ENCOUNTER → 2025-06-30 | Outpatient (CLI) | payer MEDICARE, OTHER, SELFPAY ==
--- NOTE | 2025-06-30 15:10 | RAD_ITS ---
PROCEDURE: L/S SPINE MIN 4 VIEWS 06/30/2025 REASON FOR EXAM: MUSCLE SPASM OF BACK TECHNIQUE: Procedure Code: RADSPLS Modality: DX Procedure: L/S SPINE MIN 4 VIEWS COMPARISON: None. FINDINGS: BONES: Five vsy-nlz-[id number] lumbar vertebral bodies. No fracture or focal osseous lesion. Anatomic spinal alignment. Moderate thoracolumbar dextroscoliosis. DISC/DEGENERATIVE CHANGES: Disc space narrowing and vertebral endplate osteophytes at multiple levels. SOFT TISSUES: Calcified abdominal aorta and iliac arteries. RAD/L/S Spine Min 4 Views IMPRESSION: No acute osseous abnormality. Degenerative changes of the spine. Reading Location: [id number]
== END | disposition home or self-care (01) ==
LOC: RAD 15:09
PROVIDERS: PCP Family Medicine Geriatric Medicine; Referring Provider Family Medicine Geriatric Medicine; Visit Provider Family Medicine Geriatric Medicine
DX: M54.16 Radiculopathy, lumbar region (principal); M62.830 Muscle spasm of back
CPT/HCPCS: 72110

== ENCOUNTER → 2025-07-12 | Outpatient (CLI) | payer MEDICARE, OTHER, SELFPAY ==
--- NOTE | 2025-07-12 13:16 | MRI_ITS ---
PROCEDURE: SPINE LUMBAR (ROUTINE) 07/12/2025 REASON FOR EXAM: RADICULOPATHY TECHNIQUE: Procedure Code: MRISPL Modality: MR Procedure: SPINE LUMBAR (ROUTINE) FINDINGS: Normal lumbar alignment and vertebral body height. No subluxation or compression deformity. Mild canal narrowing at T12-L1 from concentric annular bulge. L1-2 demonstrates no central or foraminal impingement L2-3 demonstrates no central or foraminal stenosis. At L3-4 there is moderate circumferential spinal canal narrowing from ligamentous hypertrophy, disc bulging and right-sided synovial cyst formation. The synovial cyst measures 8 mm. At L4-5 there is left L4 foraminal encroachment from a small protrusion. No central stenosis At L5-S1 mild canal narrowing from concentric annular bulge. MRI/Spine Lumbar (Routine) IMPRESSION: Moderate canal narrowing at L3-4. Synovial cyst on the right. Left L4 foramin al nerve impingement with small protrusion. Reading Location: [id number]
== END | disposition home or self-care (01) ==
LOC: OPMRI 13:13
PROVIDERS: PCP Family Medicine Geriatric Medicine; Referring Provider Family Medicine Geriatric Medicine; Visit Provider Family Medicine Geriatric Medicine
DX: M54.16 Radiculopathy, lumbar region (principal); M51.9 Unspecified thoracic, thoracolumbar and lumbosacral intervertebral disc disorder; M62.830 Muscle spasm of back
CPT/HCPCS: 72148

== ENCOUNTER → 2025-08-16 | Outpatient (CLI) | payer MEDICARE, OTHER, SELFPAY ==
[2025-08-16 09:55] LABS: Hematocrit 46.3 % (40-54); Hemoglobin 15.4 g/dL (13.0-16.5); Immature Granulocytes Count 0.040 X10^3/uL (0.0-0.0); Mean Corp Hgb Conc 33.3 g/dL (32-36); Mean Corpuscular Volume 87.2 fL (80-94); Mean Platelet Vol. 9.2 fl (6.2-12.0); NRBC Flagged by Analyzer 0 % (0-5); Platelet Count 243 K/mm3 (150-450); RBC Distribution Width CV 14.3 % (11.6-14.6); RBC Distribution Width SD 46.2 fl (35.1-43.9); Red Blood Count 5.31 M/mm3 (4.6-6.2); White Blood Count 6.7 K/mm3 (4.4-11.0)
[2025-08-16 10:45] LABS: AST(SGOT) 21 U/L (<=37); Alanine Aminotransfer ALT/SGPT 18 U/L (<=46); Albumin, Serum 4.0 g/dL (3.4-4.8); Alkaline Phosphatase 134 U/L (40-129); Anion Gap 8 (5-15); BUN 16 mg/dL (4-19); BUN/Creat Ratio 18.3 RATIO (10-20); Calcium,Total 9.2 mg/dL (7.6-11.0); Carbon Dioxide 30.1 mmol/L (21.0-32.0); Chloride 104 mmol/L (98-108); Globulin 2.9 g/dL (2.2-4.2); Glucose 91 mg/dL (70-99); Potassium 4.5 mmol/L (3.3-5.1); Vitamin D,25 Hydroxy 19.0 ng/mL (30-100)
[2025-08-16 17:35] LABS: Xtra Tube Kwok EXTRA TUBE
== END | disposition home or self-care (01) ==
LOC: POLAB3 09:34
PROVIDERS: PCP Family Medicine Geriatric Medicine; Visit Provider Family Medicine Geriatric Medicine
DX: E55.9 Vitamin D deficiency, unspecified (principal); R53.83 Other fatigue
CPT/HCPCS: 36415; 80053; 82306; 84443; 85025

== ENCOUNTER 2025-09-22 12:00 | Outpatient (RCR) | payer MEDICARE, OTHER, SELFPAY ==
--- NOTE | 2025-07-14 10:52 | HP.PTEVAL_ITS ---
Patient's Visit Information Visit Information Visit Information: DIONI WEST is a 75 year old M referred to Physical Therapy by Dr. Tj So MD with a diagnosis of L disc disease/spasm. Date of Evaluation: 07/14/25 Physical Therapist: ROSAURA Hassan Visit Plan Frequency: 2x /Week Duration: 2 Months Plan: 2X/ week for 8 weeks for stretching of the L spine, Hamstrings, trunk flexion, core stability with HEP to continue on his own Pt is very active and still skii's HEP: SKC, DKC, hamstring stretch with strap in supine, Seated trunk flexion stretch Subjective Subjective: Couple of months ago he stood on a ladder up overhead into extension for 3 days and got a pain in his LB and pain went down B legs and legs got week. Somedays he is fine and then other days he will get pain for no reason. Leaning BW makes the pain much worse. He had an MRI on Saturday and gets the results next Saturday. He will stop by the hospital today to get the disk and ask his daughter who is a radiologist. He gets the leg giving out random.. sometimes it will be twice in a day and sometimes it will be random. Objective Objective: Gait: Normal gait pattern Trunk AROM: Flexion 100%, Ext 50%, SB 75% B, Rot B 75% stiff in all planes Able to do a prone press up with increase stiffness and decreased ROM but no pain in back or legs LE MMT: R hip flex 14.1 and L 12.4 R knee ext 22.8 and L 22.8 R knee flex 10.1 and L 8.4 Patellar DTR's 2+/3 Tight SKC, DKC, HS Good LTR Able to do a full ROM bridge -SLR test B and -SLUMP test B Balance/Special Test Scores Oswestry Low Back Score: 1 Goals Goal 1:: I HEP for flexibility and core stability Goal Time Frame: 6-8 Weeks Goal 2:: Decrease frequency of B leg pain Goal Time Frame: 6-8 Weeks Goal 3:: Increase trunk flexibility and HS flexibility Goal Time Frame: 6-8 Weeks Rehabilitation Potential Rehabilitation Potential: Good Anticipated Interventions Patient/Client Instruction: Educate patient on: Condition and Plan of Care For the Purpose of:: To decrease pain, To increase ROM, To improve nutrient delivery to tissue, To improve muscle performance and motor function, To improve ability to perform ADL's, To increase tolerance to activity/condition/position, To improve performance and independence with ADL's, To decrease level of supervision to perform tasks, To improve gait and locomotor functions, To improve health of tissue, To decrease soft tissue restriction, To increase flexibility/ROM and To improve endurance Therapeutic Exercise to Include: Strength training, Endurance training, Body mechanics, Postural training, Flexibilty training, Gait and locomotor training, Neuromotor development, Active ROM, Dynamic Lumbar Stabilization and Emiliana Exercises For the Purpose of:: To decrease pain, To increase ROM, To improve nutrient delivery to tissue, To improve muscle performance and motor function, To improve ability to perform ADL's, To increase tolerance to activity/condition/position, To improve performance and independence with ADL's, To decrease level of supervision to perform tasks, To improve ability of physical actions for home/community/work/leisure, To improve gait and locomotor functions, To improve health of tissue, To decrease soft tissue restriction and To increase flexibility/ROM Functional Training to Include: Gait training For the Purpose of:: To improve gait and locomotor functions Text: Thank you for the opportunity to evaluate your patient. For Medicare and Medicare HMO plans, please review the plan of care and approve it. It will need to be FAXED BACK to us at [phone] for Medicare purposes. For Medicare only, by signing this I certify the plan of care. Please let me know if there are questions or concerns regarding this plan of care. Physician Signature: Date:
--- NOTE | 2025-09-06 09:35 | HP.PTREVAL ---
Re-Evaluation Intro: Dr. Tj So MD, It has been my pleasure to treat DIONI WEST over the last 10 visits for L disc disease/spasm. Please see the progress note below for an update on the physical therapy plan of care! Subjective Subjective: Pt reports that he was dumb this weekend and lifted a bunch of heavy stuff and has a little pain now. He gets his shot on Saturday. He will still be walking and he will get a zing down his legs occ. Objective Objective/Function: Pt had increased pain with walking with [employer] [employer] today so we held off. Plan Plan Plan: Give bugs, bridges on ball and standing B arm extension for HEP next visit 2X/ week for 8 weeks for stretching of the L spine, Hamstrings, trunk flexion, core stability with HEP to continue on his own Pt is very active and still skii's HEP: SKC, DKC, hamstring stretch with strap in supine, Seated trunk flexion stretch Balance/Gait/Functional tests Balance/Special Test Scores Oswestry Low Back Score: 8 Goals Goals Goal 1:: I HEP for flexibility and core stability Goal Time Frame: 6-8 Weeks Goal Progress: Progressing Goal 2:: Decrease frequency of B leg pain Goal Time Frame: 6-8 Weeks Goal Progress: Progressing Goal 3:: Increase trunk flexibility and HS flexibility Goal Time Frame: 6-8 Weeks Goal Progress: Progressing Anticipated Interventions Anticipated Interventions Patient/Client Instruction: Educate patient on: Condition and Plan of Care For the Purpose of:: To decrease pain, To increase ROM, To improve nutrient delivery to tissue, To improve muscle performance and motor function, To improve ability to perform ADL's, To increase tolerance to activity/condition/position, To improve performance and independence with ADL's, To decrease level of supervision to perform tasks, To improve gait and locomotor functions, To improve health of tissue, To decrease soft tissue restriction, To increase flexibility/ROM and To improve endurance Therapeutic Exercise to Include: Strength training, Endurance training, Body mechanics, Postural training, Flexibilty training, Gait and locomotor training, Neuromotor development, Active ROM, Dynamic Lumbar Stabilization and Emiliana Exercises For the Purpose of:: To decrease pain, To increase ROM, To improve nutrient delivery to tissue, To improve muscle performance and motor function, To improve ability to perform ADL's, To increase tolerance to activity/condition/position, To improve performance and independence with ADL's, To decrease level of supervision to perform tasks, To improve ability of physical actions for home/community/work/leisure, To improve gait and locomotor functions, To improve health of tissue, To decrease soft tissue restriction and To increase flexibility/ROM Functional Training to Include: Gait training For the Purpose of:: To improve gait and locomotor functions Re-Evaluation Ending Re-evaluation ending: Please do not hesitate to contact me at [phone] by phone or if you have questions or concerns regarding this new plan of care! Sincerely, Chely Farah, MPT
--- NOTE | 2025-09-22 15:14 | HP.PTDCSUM ---
Discharge Summary D/C summary: It has been my pleasure to treat DIONI WEST referred by Dr. Tj So MD, with the diagnosis of L disc disease/spasm for a total of 13 visit(s). Discharge Date: 09/22/25 Please see the following information for a summary of their discharge status. Subjective Subjective: Pt reports that he is ready to be discharged and that he will continue to do HEP Pain Back Pain: Pain Intensity (Out of 10): 2 Overall Improvement % Improvement: 75 Objective Objective/Function: Pt has good form with exercises and we reviewed HEP with B RDL to 6 inch block with a weight and issued blue band for B arm extensions with blue band Goals Goal 1:: I HEP for flexibility and core stability Goal Progress: Goal Met Goal 2:: Decrease frequency of B leg pain Goal Progress: Goal Met Goal 3:: Increase trunk flexibility and HS flexibility Goal Progress: Goal Met Plan Plan: Give Carry, RDL, Squats for home 2X/ week for 8 weeks for stretching of the L spine, Hamstrings, trunk flexion, core stability with HEP to continue on his own Pt is very active and still skii's HEP: SKC, DKC, hamstring stretch with strap in supine, Seated trunk flexion stretch D/C Information Discharge Comments: DC PT to HEP d/c sentence: If there are questions or concerns regarding this patient's physical therapy, please feel free to call me at [phone]. Thank you for the referral of this patient. Sincerely, Chely Farah, MPT Balance/Gait/Functional tests Balance/Special Test Scores Oswestry Low Back Score: 3 Improvement % Improvement: 75
== END 2025-09-22 19:00 | disposition home or self-care (01) ==
LOC: PT 12:00
PROVIDERS: PCP Family Medicine Geriatric Medicine; Referring Provider Family Medicine Geriatric Medicine; Visit Provider Family Medicine Geriatric Medicine
DX: M51.9 Unspecified thoracic, thoracolumbar and lumbosacral intervertebral disc disorder (principal); M62.830 Muscle spasm of back
CPT/HCPCS: 97110; 97161; 97530